=== PATIENT | female | born 1990 | race Caucasian/White ===

== ENCOUNTER 2016-08-07 22:59 | Emergency (ER) | payer OTHER ==
[~2016-08-07 22:59] MED LIST: CLIN300C OR; FLUC10TA OR; NICO21DI4 TD; PERC7.5T8 OR; TRAM50TA2 OR
[2016-08-08] MEDS ORDERED: KETOROLAC 30 MG/ML VIAL (J1885) As Ordered ONE (00:44)
[2016-08-08] MEDS ORDERED: ONDANSETRON 4MG/2ML VIAL (J2405) As Ordered ONE (00:44)
[2016-08-08 01:02] LABS: CONTROL LINE HCG INT CTR LINE PRESENT
[2016-08-08 01:16] LABS: ALBUMIN 3.3 GM/DL (3.2-5.2); ALBUMIN/GLOBULIN RATIO 1.03 (1.00-1.93); ALKALINE PHOSPHATASE 69 U/L (45-117); ALT/SGPT 23 U/L (12-78); AMYLASE 49 U/L (25-115); ANION GAP 6 MEQ/L (8-16); AST/SGOT 18 U/L (15-37); BILIRUBIN,DIRECT < 0.1 MG/DL (0.0-0.2); BILIRUBIN,TOTAL 0.3 MG/DL (0.2-1.0); BLOOD UREA NITROGEN 9 MG/DL (7-18); CALCIUM LEVEL 8.2 MG/DL (8.5-10.1); CARBON DIOXIDE LEVEL 26 MEQ/L (21-32); CHLORIDE LEVEL 108 MEQ/L (98-107); CREATININE FOR GFR 0.67 MG/DL (0.55-1.02); GLOMERULAR FILTRATION RATE > 60.0 (>60); GLUCOSE, FASTING 97 MG/DL (70-105); POTASSIUM SERUM 4.4 MEQ/L (3.5-5.1); SODIUM LEVEL 140 MEQ/L (136-145); TOTAL PROTEIN 6.5 GM/DL (6.4-8.2)
[2016-08-08 01:19] LABS: BASO # 0.1 K/mm3 (0.0-0.2); BASO % 0.9 % (0.0-1.0); EOS # 0.1 K/mm3 (0.0-0.50); EOS % 1.4 % (0.0-3.0); LARGE UNSTAINED CELL # 0.2 K/mm3 (0.0-0.4); LARGE UNSTAINED CELL % 1.7 % (0.0-4.0); LYMPH # 3.1 K/mm3 (1.5-6.5); LYMPH % 34.4 % (24.0-44.0); MEAN CORPUSCULAR HEMOGLOBIN 28.8 pg (27.0-33.0); MEAN CORPUSCULAR HGB CONC 32.6 g/dl (32.0-36.5); MEAN CORPUSCULAR VOLUME 88.5 fl (80.0-96.0); MONO # 0.4 K/mm3 (0.0-0.8); MONO % 4.3 % (0.0-5.0); NEUTROPHILS # 4.9 K/mm3 (1.8-7.7); NEUTROPHILS % 57.3 % (36.0-66.0); PLATELET COUNT, AUTOMATED 173 k/mm3 (150-450); RED CELL DISTRIBUTION WIDTH 12.9 % (11.5-14.5); WHITE BLOOD COUNT 8.5 K/mm3 (4.0-10.0)
[2016-08-08 01:40] LABS: INR 1.01
--- NOTE | 2016-08-08 02:58 | EDDOCDS ---
Physician Documentation [facility] Name: Sherita Miller Age: 25 yrs Sex: Female : 1990 Arrival Date: 08/07/2016 Time: 22:59 Bed 15 Private MD: Rossana Arambula ANP- Disposition: 08/08/16 02:57 Patient has left against medical advice. - Patients states they are going to Home/Self Care. - Condition is Stable. - Discharge Instructions: AMA. Medication Reconciliation, Local Pharmacy Hours form. Follow up: Emergency Department; When: As needed; Reason: Worsening of conditions. Historical: - Allergies: PENICILLINS; Bees; - Home Meds: 1. none - PMHx: Fibromyalgia; Hepatitis C; - PSHx: none; - Social history: Smoking status: Patient uses tobacco products, current every day smoker. No barriers to communication noted, The patient speaks fluent Guinean. - Family history: Not pertinent. - : The pt / caregiver states he / she is not on anticoagulants. Home medication list is obtained from the patient. - Exposure Risk Screening:: None identified. 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 9 in. (175.26 cm) (R); Pain 8/10; 08/08 01:40 BP 132 / 68; Pulse 70; Resp 18; Pulse Ox 99% on R/A; Pain 3/10; tm5 02:40 tm5 08/07 23:01 Body Mass Index 29.24 (89.81 kg, 175.26 cm) gr2 02:40 refused signing out AMA tm5 MDM: 00:35 NS 0.9% 1000 ml IV at bolus once ordered. mm11 00:35 Ondansetron 4 mg IVP once ordered. mm11 00:35 ketorolac 30 mg IVP once ordered. mm11 00:35 IV Saline Lock ordered. mm11 00:35 Undress patient appropriately for examination ordered. mm11 00:36 Amylase Ordered. EDMS 00:36 Basic Metabolic Profile Ordered. EDMS 00:36 CBC with Diff Ordered. EDMS 00:36 HCG,Serum Qualitative Ordered. EDMS 00:36 Lipase Ordered. EDMS 00:36 Liver Profile Ordered. EDMS 00:36 Partial Thromboplastin Time Ordered. EDMS 00:36 Prothrombin Time Profile\E\INR Ordered. EDMS 00:36 NOTHING BY MOUTH+DIET ordered. EDMS 01:05 Financial registration complete. hs2 02:29 Basic Metabolic Profile Reviewed. mm11 02:29 Amylase Reviewed. mm11 02:29 CBC with Diff Reviewed. mm11 02:29 HCG,Serum Qualitative Reviewed. mm11 02:29 Lipase Reviewed. mm11 02:29 Liver Profile Reviewed. mm11 02:29 Partial Thromboplastin Time Reviewed. mm11 02:29 Prothrombin Time Profile\E\INR Reviewed. mm11 Point of Care Testing: Urine : 08/07 23:56 hCG Reading: Negative; Control Reading: Positive; af2 Ranges: Administered Medications: 08/08 00:50 Drug: NS 0.9% 1000 ml [sodium chloride 0.9 % intravenous solution] Route: IV; Rate: tm5 bolus; Site: right antecubital; 00:50 Drug: Ondansetron 4 mg [ondansetron HCl 2 mg/mL intravenous solution (2 mL)] Route: tm5 IVP; Site: right antecubital; 01:15 Follow up: Response: Nausea is resolved; No Adverse Reaction tm5 00:50 Drug: ketorolac 30 mg [ketorolac 30 mg/mL (1 mL) injection solution (1 mL)] Route: IVP; tm5 Site: right antecubital; 01:15 Follow up: Response: No Adverse Reaction; Pain is decreased tm5 Signatures: Dispatcher [employer] EDMS Mesfin Cunningham DO DO mm11 Irma Reyna RN RN af2 Geraldine Hwang, Reg Reg hs2 Diandra Serrano RN RN tm5 MTDD
--- NOTE | 2016-08-08 02:58 | EDDOCDS ---
Nurse's Notes [facility] Name: Sherita Miller Age: 25 yrs Sex: Female : 1990 Arrival Date: 08/07/2016 Time: 22:59 Bed 15 Private MD: Rossana Arambula ANP- Diagnosis: Presentation: 08/07 23:05 Presenting complaint: Patient states: RLQ pain, started a couple days ago higher in af2 abdomen. reports nausea and rectal bleeding. Risk factors: the patient reports no vaginal bleeding. Adult Sepsis Screening: The patient does not have new or worsening altered mentation. Patient's respiratory rate is less than 22. Systolic blood pressure is greater than 100. Patient has a qSOFA score of 0- Negative Sepsis Screen. Suicide/Homicide risk assessment- the patient denies having any suicidal and/or homicidal ideations and does not present with any other emotional, behavioral or mental health complaints. Status: Patient is not a legal services professional or dependent. Transition of care: patient was not received from another setting of care. 23:05 Acuity: BRYANNA Level 3 af2 23:05 Method Of Arrival: Walkin/Carried/Asstd af2 Triage Assessment: 23:07 General: Appears in no apparent distress, Behavior is cooperative. Pain: Location: af2 abdomen Pain currently is 8 out of 10 on a pain scale. HIV screening NA for this visit Offered previously. GI: Reports bloody stools lower abdominal pain, nausea. Derm: Skin is normal. 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 none - PMHx: Fibromyalgia; Hepatitis C; - PSHx: none; - Social history: Smoking status: Patient uses tobacco products, current every day smoker. No barriers to communication noted, The patient speaks fluent Sinhala. - Family history: Not pertinent. - : The pt / caregiver states he / she is not on anticoagulants. Home medication list is obtained from the patient. - Exposure Risk Screening:: None identified. Screenin:08 Screening information is obtained from the patient. Fall risk: No risks identified. af2 Assistance ADL's: requires no assistance with activities of daily living. Abuse/DV Screen: The patient / caregiver reports he/she is: not in a situation that causes fear, pain or injury. Nutritional screening: No deficits noted. Advance Directives: Currently, there is no health care proxy. home support is adequate. Assessment: 08/08 00:32 General: Appears in no apparent distress, Behavior is appropriate for age, cooperative. tm5 Pain: Location: right upper quadrant, left upper quadrant, right lower quadrant and left lower quadrant Pain currently is 10 out of 10 on a pain scale. Quality of pain is described as crampy. Neurological: Level of Consciousness is awake, alert, Oriented to person, place, time. Respiratory: Airway is patent Respiratory effort is even, unlabored, Respiratory pattern is regular, symmetrical. GI: Abdomen is non- distended Bowel sounds present X 4 quads. Abd is soft and non tender X 4 quads. Reports bloody stools. : No deficits noted. Derm: Skin is pink, warm & dry. normal. Musculoskeletal: No deficits noted. 00:51 General: pt now stating to this RN that she thinks the rectal bleeding is actual tm5 bleeding from urination or vaginal bleeding, also states that most of her pain right now is in the RLQ of abdomen, pt texting on her cell phone at this time, appears to be in no distress. 01:40 Reassessment: Patient appears in no apparent distress at this time. Patient states tm5 feeling better. Patient states symptoms have improved. Pain: Location: right lower quadrant Pain currently is 3 out of 10 on a pain scale. Quality of pain is described as burning. 02:05 General: pt asking other staff nurse when someone is coming into see her, this RN went tm5 to pt's bedside and asked pt what was wrong told her that this RN was just into she her about 20 minutes ago & pt had no complaints then, pt was then told that all her labs were completed & everything was coming back good, pt then started rubbing her abdomen & states "Why am I feeling so sick then, can't I get more pain medications then" pt was told that was busy with another pt & that this RN would let him know of her complaints . 02:40 General: pt again calling staff to her room, pt appears upset that she hasn't been tm5 re-evaluated by , asking to have her IV saline lock removed because she wants to leave, Elizabeth Mccullough RN telling pt she will have to sign out AMA per MD, pt okay with this & still wanting to leave ER after AMA was reviewed with her & she was made aware of Risks & Benefits of staying or leaving ER. 02:51 Reassessment: pt asking for her IV to be taken out, asking to leave. pt stating that no mlc one has "told me anything" and "I must not be critical since I have been here for 4 hours". Pt signed AMA form. . Vital Signs: 08/07 23:01 BP 144 / 72; Pulse 81; Resp 18 S; Temp 97.3(O); Pulse Ox 98% on R/A; Weight 89.81 kg gr2 (R); Height 5 ft. 9 in. (175.26 cm) (R); Pain 8/10; 08/08 01:40 BP 132 / 68; Pulse 70; Resp 18; Pulse Ox 99% on R/A; Pain 3/10; tm5 02:40 tm5 08/07 23:01 Body Mass Index 29.24 (89.81 kg, 175.26 cm) gr2 02:40 refused signing out AMA tm5 Vitals: 08/07 23:01 Log In Time: August 07, 2016 at 21:01. gr2 ED Course: 23:01 Patient visited by Rissa Mcclelland. gr2 23:01 Rossana Arambula is Private Physician. gr2 23:01 Patient moved to Waiting gr2 23:03 Patient visited by Rissa Mcclelland. gr2 23:03 Patient moved to Pre RCE gr2 23:06 Triage Initiated af2 23:08 Patient visited by Irma Reyna RN. af2 23:44 Patient moved to Triage 3 af2 23:49 Patient visited by Irma Reyna,RN. af2 23:57 Patient visited by Irma Reyna,RN. af2 08/08 00:02 Patient moved to 15 sls1 00:20 ED physician to see patient. tm5 00:23 Mesfin Cunningham DO is Attending Physician. mm11 00:23 Patient visited by Mesfin Cunningham DO. mm11 00:32 The patient / caregiver is instructed regarding the plan of care and ED course. tm5 00:35 Patient visited by Mesfin Cunningham DO. mm11 00:45 Inserted saline lock: 18 gauge in right antecubital area and blood collected. The tm5 patient tolerated the procedure well. Labs drawn. (by ED staff). Sent per order to lab. 00:46 Amylase Sent. tm5 00:46 Basic Metabolic Profile Sent. tm5 00:46 CBC with Diff Sent. tm5 00:46 HCG,Serum Qualitative Sent. tm5 00:46 Lipase Sent. tm5 00:46 Liver Profile Sent. tm5 00:46 Partial Thromboplastin Time Sent. 5 00:46 Prothrombin Time Profile\\E\\INR Sent. tm5 01:40 Patient visited by Diandra Serrano RN. 5 02:40 Discontinued lock intact, bleeding controlled, pressure dressing applied, No tm5 redness/swelling at site. 02:52 Patient visited by Diandra Serrano RN. tm5 Administered Medications: 00:50 Drug: NS 0.9% 1000 ml [sodium chloride 0.9 % intravenous solution] Route: IV; Rate: tm5 bolus; Site: right antecubital; 00:50 Drug: Ondansetron 4 mg [ondansetron HCl 2 mg/mL intravenous solution (2 mL)] Route: tm5 IVP; Site: right antecubital; 01:15 Follow up: Response: Nausea is resolved; No Adverse Reaction tm5 00:50 Drug: ketorolac 30 mg [ketorolac 30 mg/mL (1 mL) injection solution (1 mL)] Route: IVP; tm5 Site: right antecubital; 01:15 Follow up: Response: No Adverse Reaction; Pain is decreased tm5 Point of Care Testing: Urine : 08/07 23:56 hCG Reading: Negative; Control Reading: Positive; af2 Ranges: Order Results: Lab Order: Amylase; SPEC'M 08/08/16 00:43 Test: AMYLASE; Value: 49; Range: 25-115; Units: U/L; Status: F Lab Order: Basic Metabolic Profile; SPEC'M 08/08/16 00:43 Test: GLUCOSE, FASTING; Value: 97; Range: 70-105; Units: MG/DL; Status: F Test: BLOOD UREA NITROGEN; Value: 9; Range: 7-18; Units: MG/DL; Status: F Test: CREATININE FOR GFR; Value: 0.67; Range: 0.55-1.02; Units: MG/DL; Status: F Test: SODIUM LEVEL; Range: 136-145; Units: MEQ/L; Status: I Test: POTASSIUM SERUM; Range: 3.5-5.1; Units: MEQ/L; Status: I Test: CHLORIDE LEVEL; Range: 98-107; Units: MEQ/L; Status: I Test: CARBON DIOXIDE LEVEL; Range: 21-32; Units: MEQ/L; Status: I Test: ANION GAP; Range: 8-16; Units: MEQ/L; Status: I Test: CALCIUM LEVEL; Range: 8.5-10.1; Units: MG/DL; Status: I Test: GLOMERULAR FILTRATION RATE; Value: > 60.0; Range: >60; Status: F Test: SODIUM LEVEL; Value: 140; Range: 136-145; Units: MEQ/L; Status: F Test: POTASSIUM SERUM; Value: 4.4; Range: 3.5-5.1; Units: MEQ/L; Status: F Test: CHLORIDE LEVEL; Value: 108; Range: 98-107; Abnormal: Above high normal; Units: MEQ/L; Status: F Test: CARBON DIOXIDE LEVEL; Value: 26; Range: 21-32; Units: MEQ/L; Status: F Test: ANION GAP; Value: 6; Range: 8-16; Abnormal: Below low normal; Units: MEQ/L; Status: F Test: CALCIUM LEVEL; Value: 8.2; Range: 8.5-10.1; Abnormal: Below low normal; Units: MG/DL; Status: F Test Note: ; Units are mL/min/1.73 m2 Chronic Kidney Disease Staging per NKF: Stage I & II GFR >=60 Normal to Mildly Decreased Stage III GFR 30-59 Moderately Decreased Stage IV GFR 15-29 Severely Decreased Stage V GFR <15 Very Little GFR Left ESRD GFR <15 on [facility] [employer]FFA[employer] ASSISTANT Lab Order: CBC with Diff; SPEC'M 08/08/16 00:43 Test: WHITE BLOOD COUNT; Value: 8.5; Range: 4.0-10.0; Units: K/mm3; Status: F Test: RED BLOOD COUNT; Value: 4.49; Range: 4.00-5.40; Units: M/mm3; Status: F Test: HEMOGLOBIN; Value: 12.9; Range: 12.0-16.0; Units: g/dl; Status: F Test: HEMATOCRIT; Value: 39.7; Range: 36.0-47.0; Units: %; Status: F Test: MEAN CORPUSCULAR VOLUME; Value: 88.5; Range: 80.0-96.0; Units: fl; Status: F Test: MEAN CORPUSCULAR HEMOGLOBIN; Value: 28.8; Range: 27.0-33.0; Units: pg; Status: F Test: MEAN CORPUSCULAR HGB CONC; Value: 32.6; Range: 32.0-36.5; Units: g/dl; Status: F Test: RED CELL DISTRIBUTION WIDTH; Value: 12.9; Range: 11.5-14.5; Units: %; Status: F Test: PLATELET COUNT, AUTOMATED; Value: 173; Range: 150-450; Units: k/mm3; Status: F Test: NEUTROPHILS %; Value: 57.3; Range: 36.0-66.0; Units: %; Status: F Test: LYMPH %; Value: 34.4; Range: 24.0-44.0; Units: %; Status: F Test: MONO %; Value: 4.3; Range: 0.0-5.0; Units: %; Status: F Test: EOS %; Value: 1.4; Range: 0.0-3.0; Units: %; Status: F Test: BASO %; Value: 0.9; Range: 0.0-1.0; Units: %; Status: F Test: LARGE UNSTAINED CELL %; Value: 1.7; Range: 0.0-4.0; Units: %; Status: F Test: NEUTROPHILS #; Value: 4.9; Range: 1.8-7.7; Units: K/mm3; Status: F Test: LYMPH #; Value: 3.1; Range: 1.5-6.5; Units: K/mm3; Status: F Test: MONO #; Value: 0.4; Range: 0.0-0.8; Units: K/mm3; Status: F Test: EOS #; Value: 0.1; Range: 0.0-0.50; Units: K/mm3; Status: F Test: BASO #; Value: 0.1; Range: 0.0-0.2; Units: K/mm3; Status: F Test: LARGE UNSTAINED CELL #; Value: 0.2; Range: 0.0-0.4; Units: K/mm3; Status: F Lab Order: HCG,Serum Qualitative; 08/08/16:43 Test: HCG, SERUM QUALITATIVE; Value: NEGATIVE; Range: NEGATIVE; Status: F Lab Order: Lipase; 08/08/16:43 Test: LIPASE; Value: 147; Range: 73-393; Units: U/L; Status: F Lab Order: Liver Profile; 08/08/16:43 Test: AST/SGOT; Value: 18; Range: 15-37; Units: U/L; Status: F Test: ALT/SGPT; Value: 23; Range: 12-78; Units: U/L; Status: F Test: ALKALINE PHOSPHATASE; Value: 69; Range: 45-117; Units: U/L; Status: F Test: BILIRUBIN,TOTAL; Value: 0.3; Range: 0.2-1.0; Units: MG/DL; Status: F Test: BILIRUBIN,DIRECT; Value: < 0.1; Range: 0.0-0.2; Units: MG/DL; Status: F Test: TOTAL PROTEIN; Value: 6.5; Range: 6.4-8.2; Units: GM/DL; Status: F Test: ALBUMIN; Value: 3.3; Range: 3.2-5.2; Units: GM/DL; Status: F Test: ALBUMIN/GLOBULIN RATIO; Value: 1.03; Range: 1.00-1.93; Status: F Lab Order: Partial Thromboplastin Time; 08/08/16:43 Test: PARTIAL THROMBOPLASTIN TIME; Value: 31.3; Range: 26.6-37.1; Units: SECONDS; Status: F Lab Order: Prothrombin Time Profile\\E\\INR; 08/08/16:43 Test: PROTHROMBIN TIME; Value: 13.4; Range: 12.3-14.5; Units: SECONDS; Status: F Test: INR; Value: 1.01; Status: F Test Note: ; THERAPUTIC HUMAN INR VALUES INDICATIONS NORMAL RANGES PROPHYLAXIS/TREATMENT OF: VENOUS THROMBOSIS 2.0-3.0 PULMONARY EMBOLISM 2.0-3.0 PREVENTION OF SYSTEMIC EMBOLISM FROM: TISSUE HEART VALVES 2.0-3.0 ACUTE MYOCARDIAL INFARCTION 2.0-3.0 VALVULAR HEART DISEASE 2.0-3.0 ATRIAL FIBRILLATION 2.0-3.0 MECHANICAL VALVES(HIGH RISK) 2.5-3.5 RECURRENT MYOCARDIAL INFARCTION 2.5-3.5 Outcome: 08/08 02:40 Discharge Assessment: Patient awake, alert and oriented x 3. No cognitive and/or tm5 functional deficits noted. Patient verbalized understanding of disposition instructions. patient administered narcotics - no. 02:53 The patient is leaving AMA: AMA form signed, Notification of AMA status is made to the [facility] charge nurse, the ED attending physician. 02:57 Patient left against medical advice. tm5 02:57 Patient left the ED. tm5 Signatures: Mesfin Cunningham, DO mm11 Anita Garcia RN RN sls1 Rissa Mcclelland gr2 Elizabeth Butler RN RN [facility] [place] Irma Reyna RN RN 2 Diandra Serrano RN RN tm5 Corrections: (The following items were deleted from the chart) 00:35 00:32 Awaiting ED physician evaluation. tm5 tm5 02:54 02:52 General: pt again calling staff to her room, pt appears upset that she hasn't tm5 been re-evaluated by , asking to have her IV saline lock removed because she wants to leave, Elizabeth Mccullough RN telling pt she will have to sign out AMA per MD, pt okay with this & still wanting to leave ER after AMA was reviewed with her & she was made aware of Risks & Benefits of staying or leaving ER. tm5 YASMANYD
--- NOTE | 2016-08-08 06:05 | EDDOCDS ---
Nurse's Notes [facility] Name: Sherita Miller Age: 25 yrs Sex: Female : 1990 Arrival Date: 08/07/2016 Time: 22:59 Bed 15 Private MD: Rossana Arambula ANP- Diagnosis: Malingerer [conscious simulation] Presentation: 08/07 23:05 Presenting complaint: Patient states: RLQ pain, started a couple days ago higher in af2 abdomen. reports nausea and rectal bleeding. Risk factors: the patient reports no vaginal bleeding. Adult Sepsis Screening: The patient does not have new or worsening altered mentation. Patient's respiratory rate is less than 22. Systolic blood pressure is greater than 100. Patient has a qSOFA score of 0- Negative Sepsis Screen. Suicide/Homicide risk assessment- the patient denies having any suicidal and/or homicidal ideations and does not present with any other emotional, behavioral or mental health complaints. Status: Patient is not a service engineer or dependent. Transition of care: patient was not received from another setting of care. 23:05 Acuity: BRYANNA Level 3 af2 23:05 Method Of Arrival: Walkin/Carried/Asstd af2 Triage Assessment: 23:07 General: Appears in no apparent distress, Behavior is cooperative. Pain: Location: af2 abdomen Pain currently is 8 out of 10 on a pain scale. HIV screening NA for this visit Offered previously. GI: Reports bloody stools lower abdominal pain, nausea. Derm: Skin is normal. 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 none - PMHx: Fibromyalgia; Hepatitis C; - PSHx: none; - Social history: Smoking status: Patient uses tobacco products, current every day smoker. No barriers to communication noted, The patient speaks fluent Syriac. - Family history: Not pertinent. - : The pt / caregiver states he / she is not on anticoagulants. Home medication list is obtained from the patient. - Exposure Risk Screening:: None identified. Screenin:08 Screening information is obtained from the patient. Fall risk: No risks identified. af2 Assistance ADL's: requires no assistance with activities of daily living. Abuse/DV Screen: The patient / caregiver reports he/she is: not in a situation that causes fear, pain or injury. Nutritional screening: No deficits noted. Advance Directives: Currently, there is no health care proxy. home support is adequate. Assessment: 08/08 00:32 General: Appears in no apparent distress, Behavior is appropriate for age, cooperative. tm5 Pain: Location: right upper quadrant, left upper quadrant, right lower quadrant and left lower quadrant Pain currently is 10 out of 10 on a pain scale. Quality of pain is described as crampy. Neurological: Level of Consciousness is awake, alert, Oriented to person, place, time. Respiratory: Airway is patent Respiratory effort is even, unlabored, Respiratory pattern is regular, symmetrical. GI: Abdomen is non- distended Bowel sounds present X 4 quads. Abd is soft and non tender X 4 quads. Reports bloody stools. : No deficits noted. Derm: Skin is pink, warm & dry. normal. Musculoskeletal: No deficits noted. 00:51 General: pt now stating to this RN that she thinks the rectal bleeding is actual tm5 bleeding from urination or vaginal bleeding, also states that most of her pain right now is in the RLQ of abdomen, pt texting on her cell phone at this time, appears to be in no distress. 01:40 Reassessment: Patient appears in no apparent distress at this time. Patient states tm5 feeling better. Patient states symptoms have improved. Pain: Location: right lower quadrant Pain currently is 3 out of 10 on a pain scale. Quality of pain is described as burning. 02:05 General: pt asking other staff nurse when someone is coming into see her, this RN went tm5 to pt's bedside and asked pt what was wrong told her that this RN was just into she her about 20 minutes ago & pt had no complaints then, pt was then told that all her labs were completed & everything was coming back good, pt then started rubbing her abdomen & states "Why am I feeling so sick then, can't I get more pain medications then" pt was told that MD was busy with another pt & that this RN would let him know of her complaints . 02:40 General: pt again calling staff to her room, pt appears upset that she hasn't been tm5 re-evaluated by , asking to have her IV saline lock removed because she wants to leave, Elizabeth Mccullough RN telling pt she will have to sign out AMA per , pt okay with this & still wanting to leave ER after AMA was reviewed with her & she was made aware of Risks & Benefits of staying or leaving ER. 02:51 Reassessment: pt asking for her IV to be taken out, asking to leave. pt stating that no mlc one has "told me anything" and "I must not be critical since I have been here for 4 hours". Pt signed AMA form. . Vital Signs: 08/07 23:01 BP 144 / 72; Pulse 81; Resp 18 S; Temp 97.3(O); Pulse Ox 98% on R/A; Weight 89.81 kg gr2 (R); Height 5 ft. 9 in. (175.26 cm) (R); Pain 8/10; 08/08 01:40 BP 132 / 68; Pulse 70; Resp 18; Pulse Ox 99% on R/A; Pain 3/10; tm5 02:40 tm5 08/07 23:01 Body Mass Index 29.24 (89.81 kg, 175.26 cm) gr2 02:40 refused signing out AMA tm5 Vitals: 08/07 23:01 Log In Time: August 07, 2016 at 21:01. gr2 ED Course: 23:01 Patient visited by Rissa Mcclelland. gr2 23:01 Rossana Arambula is Private Physician. gr2 23:01 Patient moved to Waiting gr2 23:03 Patient visited by Rissa Mcclelland. gr2 23:03 Patient moved to Pre RCE gr2 23:06 Triage Initiated af2 23:08 Patient visited by Irma Reyna,RN. af2 23:44 Patient moved to Triage 3 af2 23:49 Patient visited by Irma Reyna,RN. af2 23:57 Patient visited by Irma Reyna,RN. af2 08/08 00:02 Patient moved to 15 sls1 00:20 ED physician to see patient. tm5 00:23 Mesfin Cunningahm DO is Attending Physician. mm11 00:23 Patient visited by Mesfin Cunningham DO. mm11 00:32 The patient / caregiver is instructed regarding the plan of care and ED course. tm5 00:35 Patient visited by Mesfin Cunningham DO. mm11 00:45 Inserted saline lock: 18 gauge in right antecubital area and blood collected. The tm5 patient tolerated the procedure well. Labs drawn. (by ED staff). Sent per order to lab. 00:46 Amylase Sent. tm5 00:46 Basic Metabolic Profile Sent. tm5 00:46 CBC with Diff Sent. tm5 00:46 HCG,Serum Qualitative Sent. tm5 00:46 Lipase Sent. tm5 00:46 Liver Profile Sent. tm5 00:46 Partial Thromboplastin Time Sent. tm5 00:46 Prothrombin Time Profile\\E\\INR Sent. tm5 01:40 Patient visited by Diandra Serrano RN. tm5 02:40 Discontinued lock intact, bleeding controlled, pressure dressing applied, No tm5 redness/swelling at site. 02:52 Patient visited by Diandra Serrano RN. tm5 03:51 [facility] Payment Agreement was scanned into [employer] and attached to record. hs2 Administered Medications: 00:50 Drug: NS 0.9% 1000 ml [sodium chloride 0.9 % intravenous solution] Route: IV; Rate: tm5 bolus; Site: right antecubital; 00:50 Drug: Ondansetron 4 mg [ondansetron HCl 2 mg/mL intravenous solution (2 mL)] Route: tm5 IVP; Site: right antecubital; 01:15 Follow up: Response: Nausea is resolved; No Adverse Reaction tm5 00:50 Drug: ketorolac 30 mg [ketorolac 30 mg/mL (1 mL) injection solution (1 mL)] Route: IVP; tm5 Site: right antecubital; 01:15 Follow up: Response: No Adverse Reaction; Pain is decreased tm5 Point of Care Testing: Urine : 08/07 23:56 hCG Reading: Negative; Control Reading: Positive; af2 Ranges: Order Results: Lab Order: Amylase; SPEC'M 08/08/16 00:43 Test: AMYLASE; Value: 49; Range: 25-115; Units: U/L; Status: F Lab Order: Basic Metabolic Profile; SPEC'M 08/08/16 00:43 Test: GLUCOSE, FASTING; Value: 97; Range: 70-105; Units: MG/DL; Status: F Test: BLOOD UREA NITROGEN; Value: 9; Range: 7-18; Units: MG/DL; Status: F Test: CREATININE FOR GFR; Value: 0.67; Range: 0.55-1.02; Units: MG/DL; Status: F Test: SODIUM LEVEL; Range: 136-145; Units: MEQ/L; Status: I Test: POTASSIUM SERUM; Range: 3.5-5.1; Units: MEQ/L; Status: I Test: CHLORIDE LEVEL; Range: 98-107; Units: MEQ/L; Status: I Test: CARBON DIOXIDE LEVEL; Range: 21-32; Units: MEQ/L; Status: I Test: ANION GAP; Range: 8-16; Units: MEQ/L; Status: I Test: CALCIUM LEVEL; Range: 8.5-10.1; Units: MG/DL; Status: I Test: GLOMERULAR FILTRATION RATE; Value: > 60.0; Range: >60; Status: F Test: SODIUM LEVEL; Value: 140; Range: 136-145; Units: MEQ/L; Status: F Test: POTASSIUM SERUM; Value: 4.4; Range: 3.5-5.1; Units: MEQ/L; Status: F Test: CHLORIDE LEVEL; Value: 108; Range: 98-107; Abnormal: Above high normal; Units: MEQ/L; Status: F Test: CARBON DIOXIDE LEVEL; Value: 26; Range: 21-32; Units: MEQ/L; Status: F Test: ANION GAP; Value: 6; Range: 8-16; Abnormal: Below low normal; Units: MEQ/L; Status: F Test: CALCIUM LEVEL; Value: 8.2; Range: 8.5-10.1; Abnormal: Below low normal; Units: MG/DL; Status: F Test Note: ; Units are mL/min/1.73 m2 Chronic Kidney Disease Staging per NKF: Stage I & II GFR >=60 Normal to Mildly Decreased Stage III GFR 30-59 Moderately Decreased Stage IV GFR 15-29 Severely Decreased Stage V GFR <15 Very Little GFR Left ESRD GFR <15 on MANAGER R D Lab Order: CBC with Diff; SPEC'M 08/08/16 00:43 Test: WHITE BLOOD COUNT; Value: 8.5; Range: 4.0-10.0; Units: K/mm3; Status: F Test: RED BLOOD COUNT; Value: 4.49; Range: 4.00-5.40; Units: M/mm3; Status: F Test: HEMOGLOBIN; Value: 12.9; Range: 12.0-16.0; Units: g/dl; Status: F Test: HEMATOCRIT; Value: 39.7; Range: 36.0-47.0; Units: %; Status: F Test: MEAN CORPUSCULAR VOLUME; Value: 88.5; Range: 80.0-96.0; Units: fl; Status: F Test: MEAN CORPUSCULAR HEMOGLOBIN; Value: 28.8; Range: 27.0-33.0; Units: pg; Status: F Test: MEAN CORPUSCULAR HGB CONC; Value: 32.6; Range: 32.0-36.5; Units: g/dl; Status: F Test: RED CELL DISTRIBUTION WIDTH; Value: 12.9; Range: 11.5-14.5; Units: %; Status: F Test: PLATELET COUNT, AUTOMATED; Value: 173; Range: 150-450; Units: k/mm3; Status: F Test: NEUTROPHILS %; Value: 57.3; Range: 36.0-66.0; Units: %; Status: F Test: LYMPH %; Value: 34.4; Range: 24.0-44.0; Units: %; Status: F Test: MONO %; Value: 4.3; Range: 0.0-5.0; Units: %; Status: F Test: EOS %; Value: 1.4; Range: 0.0-3.0; Units: %; Status: F Test: BASO %; Value: 0.9; Range: 0.0-1.0; Units: %; Status: F Test: LARGE UNSTAINED CELL %; Value: 1.7; Range: 0.0-4.0; Units: %; Status: F Test: NEUTROPHILS #; Value: 4.9; Range: 1.8-7.7; Units: K/mm3; Status: F Test: LYMPH #; Value: 3.1; Range: 1.5-6.5; Units: K/mm3; Status: F Test: MONO #; Value: 0.4; Range: 0.0-0.8; Units: K/mm3; Status: F Test: EOS #; Value: 0.1; Range: 0.0-0.50; Units: K/mm3; Status: F Test: BASO #; Value: 0.1; Range: 0.0-0.2; Units: K/mm3; Status: F Test: LARGE UNSTAINED CELL #; Value: 0.2; Range: 0.0-0.4; Units: K/mm3; Status: F Lab Order: HCG,Serum Qualitative; 08/08/16 00:43 Test: HCG, SERUM QUALITATIVE; Value: NEGATIVE; Range: NEGATIVE; Status: F Lab Order: Lipase; 08/08/16 00:43 Test: LIPASE; Value: 147; Range: 73-393; Units: U/L; Status: F Lab Order: Liver Profile; 08/08/16 00:43 Test: AST/SGOT; Value: 18; Range: 15-37; Units: U/L; Status: F Test: ALT/SGPT; Value: 23; Range: 12-78; Units: U/L; Status: F Test: ALKALINE PHOSPHATASE; Value: 69; Range: 45-117; Units: U/L; Status: F Test: BILIRUBIN,TOTAL; Value: 0.3; Range: 0.2-1.0; Units: MG/DL; Status: F Test: BILIRUBIN,DIRECT; Value: < 0.1; Range: 0.0-0.2; Units: MG/DL; Status: F Test: TOTAL PROTEIN; Value: 6.5; Range: 6.4-8.2; Units: GM/DL; Status: F Test: ALBUMIN; Value: 3.3; Range: 3.2-5.2; Units: GM/DL; Status: F Test: ALBUMIN/GLOBULIN RATIO; Value: 1.03; Range: 1.00-1.93; Status: F Lab Order: Partial Thromboplastin Time; 08/08/16 00:43 Test: PARTIAL THROMBOPLASTIN TIME; Value: 31.3; Range: 26.6-37.1; Units: SECONDS; Status: F Lab Order: Prothrombin Time Profile\\E\\INR; 08/08/16 00:43 Test: PROTHROMBIN TIME; Value: 13.4; Range: 12.3-14.5; Units: SECONDS; Status: F Test: INR; Value: 1.01; Status: F Test Note: ; THERAPUTIC HUMAN INR VALUES INDICATIONS NORMAL RANGES PROPHYLAXIS/TREATMENT OF: VENOUS THROMBOSIS 2.0-3.0 PULMONARY EMBOLISM 2.0-3.0 PREVENTION OF SYSTEMIC EMBOLISM FROM: TISSUE HEART VALVES 2.0-3.0 ACUTE MYOCARDIAL INFARCTION 2.0-3.0 VALVULAR HEART DISEASE 2.0-3.0 ATRIAL FIBRILLATION 2.0-3.0 MECHANICAL VALVES(HIGH RISK) 2.5-3.5 RECURRENT MYOCARDIAL INFARCTION 2.5-3.5 Outcome: 08/08 02:40 Discharge Assessment: Patient awake, alert and oriented x 3. No cognitive and/or tm5 functional deficits noted. Patient verbalized understanding of disposition instructions. patient administered narcotics - no. 02:53 The patient is leaving AMA: AMA form signed, Notification of AMA status is made to the [facility] charge nurse, the ED attending physician. 02:57 Patient left against medical advice. tm5 02:57 Patient left the ED. tm5 06:04 Patient left the ED. mm11 Signatures: Mesfin Cunningham, DO mm11 Anita Garcia RN RN sls1 Rissa Mcclelland gr2 Elizabeth Butler RN RN [facility] Irma Reyna RN RN af2 Geraldine Hwang, Reg Reg hs2 Diandra Serrano,RN RN tm5 Corrections: (The following items were deleted from the chart) 00:35 00:32 Awaiting ED physician evaluation. tm5 tm5 02:54 02:52 General: pt again calling staff to her room, pt appears upset that she hasn't tm5 been re-evaluated by , asking to have her IV saline lock removed because she wants to leave, Elizabeth Mccullough RN telling pt she will have to sign out AMA per , pt okay with this & still wanting to leave ER after AMA was reviewed with her & she was made aware of Risks & Benefits of staying or leaving ER. tm5 MTDD
--- NOTE | 2016-08-08 06:05 | EDDOCDS ---
Physician Documentation [facility] Name: Sherita Miller Age: 25 yrs Sex: Female : 1990 Arrival Date: 08/07/2016 Time: 22:59 Bed 15 Private MD: Rossana Arambula ANP- Disposition: 08/08/16 02:57 Patient has left against medical advice. 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 - Patients states they are going to Home/Self Care. - Condition is Stable. - Discharge Instructions: AMA. Medication Reconciliation, Local Pharmacy Hours form. Follow up: Emergency Department; When: As needed; Reason: Worsening of conditions. - Problem is an ongoing problem. - Symptoms are unchanged. Historical: - Allergies: PENICILLINS; Bees; - Home Meds: 1. none - PMHx: Fibromyalgia; Hepatitis C; - PSHx: none; - Social history: Smoking status: Patient uses tobacco products, current every day smoker. No barriers to communication noted, The patient speaks fluent Palauan. - Family history: Not pertinent. - : The pt / caregiver states he / she is not on anticoagulants. Home medication list is obtained from the patient. - Exposure Risk Screening:: None identified. 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 9 in. (175.26 cm) (R); Pain 8/10; 08/08 01:40 BP 132 / 68; Pulse 70; Resp 18; Pulse Ox 99% on R/A; Pain 3/10; tm5 02:40 tm5 08/07 23:01 Body Mass Index 29.24 (89.81 kg, 175.26 cm) gr2 02:40 refused signing out AMA tm5 MDM: 00:35 NS 0.9% 1000 ml IV at bolus once ordered. mm11 00:35 Ondansetron 4 mg IVP once ordered. mm11 00:35 ketorolac 30 mg IVP once ordered. mm11 00:35 IV Saline Lock ordered. mm11 00:35 Undress patient appropriately for examination ordered. mm11 00:36 Amylase Ordered. EDMS 00:36 Basic Metabolic Profile Ordered. EDMS 00:36 CBC with Diff Ordered. EDMS 00:36 HCG,Serum Qualitative Ordered. EDMS 00:36 Lipase Ordered. EDMS 00:36 Liver Profile Ordered. EDMS 00:36 Partial Thromboplastin Time Ordered. EDMS 00:36 Prothrombin Time Profile\E\INR Ordered. EDMS 00:36 NOTHING BY MOUTH+DIET ordered. EDMS 01:05 Financial registration complete. hs2 02:29 Basic Metabolic Profile Reviewed. mm11 02:29 Amylase Reviewed. mm11 02:29 CBC with Diff Reviewed. mm11 02:29 HCG,Serum Qualitative Reviewed. mm11 02:29 Lipase Reviewed. mm11 02:29 Liver Profile Reviewed. mm11 02:29 Partial Thromboplastin Time Reviewed. mm11 02:29 Prothrombin Time Profile\E\INR Reviewed. mm11 03:51 [facility] Payment Agreement was scanned into [employer] and attached to record. hs2 Point of Care Testing: Urine : 08/07 23:56 hCG Reading: Negative; Control Reading: Positive; af2 Ranges: Administered Medications: 08/08 00:50 Drug: NS 0.9% 1000 ml [sodium chloride 0.9 % intravenous solution] Route: IV; Rate: tm5 bolus; Site: right antecubital; 00:50 Drug: Ondansetron 4 mg [ondansetron HCl 2 mg/mL intravenous solution (2 mL)] Route: tm5 IVP; Site: right antecubital; 01:15 Follow up: Response: Nausea is resolved; No Adverse Reaction tm5 00:50 Drug: ketorolac 30 mg [ketorolac 30 mg/mL (1 mL) injection solution (1 mL)] Route: IVP; tm5 Site: right antecubital; 01:15 Follow up: Response: No Adverse Reaction; Pain is decreased tm5 Signatures: Dispatcher [employer] EDMS Mesfin Cunningham DO DO mm11 Irma Reyna RN RN af2 Geraldine Hwang, Reg Reg hs2 Diandra Serrano RN RN tm5 The chart was reviewed and I authenticate all verbal orders and agree with the evaluation and treatment provided.Attachments: 03:51 [facility] Payment Agreement hs2 MTDD
--- NOTE | 2016-08-10 07:05 | EDDOCDS ---
Physician Documentation [facility] Name: Sherita Miller Age: 25 yrs Sex: Female : 1990 Arrival Date: 08/07/2016 Time: 22:59 Bed 15 Private MD: Rossana Arambula ANP- Disposition: 08/08/16 02:57 Patient has left against medical advice. 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 - Patients states they are going to Home/Self Care. - Condition is Stable. - Discharge Instructions: AMA. Medication Reconciliation, Local Pharmacy Hours form. Follow up: Emergency Department; When: As needed; Reason: Worsening of conditions. - Problem is an ongoing problem. - Symptoms are unchanged. Historical: - Allergies: PENICILLINS; Bees; - Home Meds: 1. none - PMHx: Fibromyalgia; Hepatitis C; - PSHx: none; - Social history: Smoking status: Patient uses tobacco products, current every day smoker. No barriers to communication noted, The patient speaks fluent Sammarinese. - Family history: Not pertinent. - : The pt / caregiver states he / she is not on anticoagulants. Home medication list is obtained from the patient. - Exposure Risk Screening:: None identified. 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 9 in. (175.26 cm) (R); Pain 8/10; 08/08 01:40 BP 132 / 68; Pulse 70; Resp 18; Pulse Ox 99% on R/A; Pain 3/10; tm5 02:40 tm5 08/07 23:01 Body Mass Index 29.24 (89.81 kg, 175.26 cm) gr2 02:40 refused signing out AMA tm5 MDM: 00:35 NS 0.9% 1000 ml IV at bolus once ordered. mm11 00:35 Ondansetron 4 mg IVP once ordered. mm11 00:35 ketorolac 30 mg IVP once ordered. mm11 00:35 IV Saline Lock ordered. mm11 00:35 Undress patient appropriately for examination ordered. mm11 00:36 Amylase Ordered. EDMS 00:36 Basic Metabolic Profile Ordered. EDMS 00:36 CBC with Diff Ordered. EDMS 00:36 HCG,Serum Qualitative Ordered. EDMS 00:36 Lipase Ordered. EDMS 00:36 Liver Profile Ordered. EDMS 00:36 Partial Thromboplastin Time Ordered. EDMS 00:36 Prothrombin Time Profile\E\INR Ordered. EDMS 00:36 NOTHING BY MOUTH+DIET ordered. EDMS 01:05 Financial registration complete. hs2 02:29 Basic Metabolic Profile Reviewed. mm11 02:29 Amylase Reviewed. mm11 02:29 CBC with Diff Reviewed. mm11 02:29 HCG,Serum Qualitative Reviewed. mm11 02:29 Lipase Reviewed. mm11 02:29 Liver Profile Reviewed. mm11 02:29 Partial Thromboplastin Time Reviewed. mm11 02:29 Prothrombin Time Profile\E\INR Reviewed. mm11 03:51 [facility] Payment Agreement was scanned into [employer] and attached to record. hs2 10:08 Refusal of Services was scanned into [employer] and attached to record. gb 10:08 T-Sheet-- Draft Copy was scanned into [employer] and attached to record. Point of Care Testing: Urine : 08/07 23:56 hCG Reading: Negative; Control Reading: Positive; af2 Ranges: Administered Medications: 08/08 00:50 Drug: NS 0.9% 1000 ml [sodium chloride 0.9 % intravenous solution] Route: IV; Rate: tm5 bolus; Site: right antecubital; 00:50 Drug: Ondansetron 4 mg [ondansetron HCl 2 mg/mL intravenous solution (2 mL)] Route: tm5 IVP; Site: right antecubital; 01:15 Follow up: Response: Nausea is resolved; No Adverse Reaction tm5 00:50 Drug: ketorolac 30 mg [ketorolac 30 mg/mL (1 mL) injection solution (1 mL)] Route: IVP; tm5 Site: right antecubital; 01:15 Follow up: Response: No Adverse Reaction; Pain is decreased tm5 Signatures: Dispatcher [employer] EDMS Rocio Zepeda, Reg Reg gb Mesfin Cunningham, DO mm11 Irma ReynaRN RN af2 Geraldine Hwang, Reg Reg hs2 Matice,Diandra,RN RN tm5 The chart was reviewed and I authenticate all verbal orders and agree with the evaluation and treatment provided.Attachments: 03:51 [facility] Payment Agreement hs2 10:08 T-Sheet-- Draft Copy gb Chart Complete MTDD
--- NOTE | 2016-08-10 07:05 | EDDOCDS ---
Physician Documentation [facility] Name: Sherita Miller Age: 25 yrs Sex: Female : 1990 Arrival Date: 08/07/2016 Time: 22:59 Bed 15 Private MD: Rossana Arambula ANP- Disposition: 08/08/16 02:57 Patient has left against medical advice. 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 - Patients states they are going to Home/Self Care. - Condition is Stable. - Discharge Instructions: AMA. Medication Reconciliation, Local Pharmacy Hours form. Follow up: Emergency Department; When: As needed; Reason: Worsening of conditions. - Problem is an ongoing problem. - Symptoms are unchanged. Historical: - Allergies: PENICILLINS; Bees; - Home Meds: 1. none - PMHx: Fibromyalgia; Hepatitis C; - PSHx: none; - Social history: Smoking status: Patient uses tobacco products, current every day smoker. No barriers to communication noted, The patient speaks fluent Uruguayan. - Family history: Not pertinent. - : The pt / caregiver states he / she is not on anticoagulants. Home medication list is obtained from the patient. - Exposure Risk Screening:: None identified. 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 9 in. (175.26 cm) (R); Pain 8/10; 08/08 01:40 BP 132 / 68; Pulse 70; Resp 18; Pulse Ox 99% on R/A; Pain 3/10; tm5 02:40 tm5 08/07 23:01 Body Mass Index 29.24 (89.81 kg, 175.26 cm) gr2 02:40 refused signing out AMA tm5 MDM: 00:35 NS 0.9% 1000 ml IV at bolus once ordered. mm11 00:35 Ondansetron 4 mg IVP once ordered. mm11 00:35 ketorolac 30 mg IVP once ordered. mm11 00:35 IV Saline Lock ordered. mm11 00:35 Undress patient appropriately for examination ordered. mm11 00:36 Amylase Ordered. EDMS 00:36 Basic Metabolic Profile Ordered. EDMS 00:36 CBC with Diff Ordered. EDMS 00:36 HCG,Serum Qualitative Ordered. EDMS 00:36 Lipase Ordered. EDMS 00:36 Liver Profile Ordered. EDMS 00:36 Partial Thromboplastin Time Ordered. EDMS 00:36 Prothrombin Time Profile\E\INR Ordered. EDMS 00:36 NOTHING BY MOUTH+DIET ordered. EDMS 01:05 Financial registration complete. hs2 02:29 Basic Metabolic Profile Reviewed. mm11 02:29 Amylase Reviewed. mm11 02:29 CBC with Diff Reviewed. mm11 02:29 HCG,Serum Qualitative Reviewed. mm11 02:29 Lipase Reviewed. mm11 02:29 Liver Profile Reviewed. mm11 02:29 Partial Thromboplastin Time Reviewed. mm11 02:29 Prothrombin Time Profile\E\INR Reviewed. mm11 03:51 [facility] Payment Agreement was scanned into [employer] and attached to record. hs2 10:08 Refusal of Services was scanned into [employer] and attached to record. gb 10:08 T-Sheet-- Draft Copy was scanned into [employer] and attached to record. Point of Care Testing: Urine : 08/07 23:56 hCG Reading: Negative; Control Reading: Positive; af2 Ranges: Administered Medications: 08/08 00:50 Drug: NS 0.9% 1000 ml [sodium chloride 0.9 % intravenous solution] Route: IV; Rate: tm5 bolus; Site: right antecubital; 00:50 Drug: Ondansetron 4 mg [ondansetron HCl 2 mg/mL intravenous solution (2 mL)] Route: tm5 IVP; Site: right antecubital; 01:15 Follow up: Response: Nausea is resolved; No Adverse Reaction tm5 00:50 Drug: ketorolac 30 mg [ketorolac 30 mg/mL (1 mL) injection solution (1 mL)] Route: IVP; tm5 Site: right antecubital; 01:15 Follow up: Response: No Adverse Reaction; Pain is decreased tm5 Signatures: Dispatcher [employer] EDMS Rocio Zepeda, Reg Reg gb Mesfin Cunningham, DO mm11 Irma ReyanRN RN af2 Geraldine Hwang, Reg Reg hs2 Matice,Diandra,RN RN tm5 The chart was reviewed and I authenticate all verbal orders and agree with the evaluation and treatment provided.Attachments: 03:51 [facility] Payment Agreement hs2 10:08 T-Sheet-- Draft Copy gb Chart Complete MTDD
--- NOTE | 2016-08-10 07:05 | EDDOCDS ---
Nurse's Notes [facility] Name: Sherita Miller Age: 25 yrs Sex: Female : 1990 Arrival Date: 08/07/2016 Time: 22:59 Bed 15 Private MD: Rossana Arambula ANP- Diagnosis: Malingerer [conscious simulation] Presentation: 08/07 23:05 Presenting complaint: Patient states: RLQ pain, started a couple days ago higher in af2 abdomen. reports nausea and rectal bleeding. Risk factors: the patient reports no vaginal bleeding. Adult Sepsis Screening: The patient does not have new or worsening altered mentation. Patient's respiratory rate is less than 22. Systolic blood pressure is greater than 100. Patient has a qSOFA score of 0- Negative Sepsis Screen. Suicide/Homicide risk assessment- the patient denies having any suicidal and/or homicidal ideations and does not present with any other emotional, behavioral or mental health complaints. Status: Patient is not a director agricultural services or dependent. Transition of care: patient was not received from another setting of care. 23:05 Acuity: BRYANNA Level 3 af2 23:05 Method Of Arrival: Walkin/Carried/Asstd af2 Triage Assessment: 23:07 General: Appears in no apparent distress, Behavior is cooperative. Pain: Location: af2 abdomen Pain currently is 8 out of 10 on a pain scale. HIV screening NA for this visit Offered previously. GI: Reports bloody stools lower abdominal pain, nausea. Derm: Skin is normal. 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 none - PMHx: Fibromyalgia; Hepatitis C; - PSHx: none; - Social history: Smoking status: Patient uses tobacco products, current every day smoker. No barriers to communication noted, The patient speaks fluent Albanian. - Family history: Not pertinent. - : The pt / caregiver states he / she is not on anticoagulants. Home medication list is obtained from the patient. - Exposure Risk Screening:: None identified. Screenin:08 Screening information is obtained from the patient. Fall risk: No risks identified. af2 Assistance ADL's: requires no assistance with activities of daily living. Abuse/DV Screen: The patient / caregiver reports he/she is: not in a situation that causes fear, pain or injury. Nutritional screening: No deficits noted. Advance Directives: Currently, there is no health care proxy. home support is adequate. Assessment: 08/08 00:32 General: Appears in no apparent distress, Behavior is appropriate for age, cooperative. tm5 Pain: Location: right upper quadrant, left upper quadrant, right lower quadrant and left lower quadrant Pain currently is 10 out of 10 on a pain scale. Quality of pain is described as crampy. Neurological: Level of Consciousness is awake, alert, Oriented to person, place, time. Respiratory: Airway is patent Respiratory effort is even, unlabored, Respiratory pattern is regular, symmetrical. GI: Abdomen is non- distended Bowel sounds present X 4 quads. Abd is soft and non tender X 4 quads. Reports bloody stools. : No deficits noted. Derm: Skin is pink, warm & dry. normal. Musculoskeletal: No deficits noted. 00:51 General: pt now stating to this RN that she thinks the rectal bleeding is actual tm5 bleeding from urination or vaginal bleeding, also states that most of her pain right now is in the RLQ of abdomen, pt texting on her cell phone at this time, appears to be in no distress. 01:40 Reassessment: Patient appears in no apparent distress at this time. Patient states tm5 feeling better. Patient states symptoms have improved. Pain: Location: right lower quadrant Pain currently is 3 out of 10 on a pain scale. Quality of pain is described as burning. 02:05 General: pt asking other staff nurse when someone is coming into see her, this RN went tm5 to pt's bedside and asked pt what was wrong told her that this RN was just into she her about 20 minutes ago & pt had no complaints then, pt was then told that all her labs were completed & everything was coming back good, pt then started rubbing her abdomen & states "Why am I feeling so sick then, can't I get more pain medications then" pt was told that MD was busy with another pt & that this RN would let him know of her complaints . 02:40 General: pt again calling staff to her room, pt appears upset that she hasn't been tm5 re-evaluated by , asking to have her IV saline lock removed because she wants to leave, Elizabeth Mccullough RN telling pt she will have to sign out AMA per , pt okay with this & still wanting to leave ER after AMA was reviewed with her & she was made aware of Risks & Benefits of staying or leaving ER. 02:51 Reassessment: pt asking for her IV to be taken out, asking to leave. pt stating that no mlc one has "told me anything" and "I must not be critical since I have been here for 4 hours". Pt signed AMA form. . Vital Signs: 08/07 23:01 BP 144 / 72; Pulse 81; Resp 18 S; Temp 97.3(O); Pulse Ox 98% on R/A; Weight 89.81 kg gr2 (R); Height 5 ft. 9 in. (175.26 cm) (R); Pain 8/10; 08/08 01:40 BP 132 / 68; Pulse 70; Resp 18; Pulse Ox 99% on R/A; Pain 3/10; tm5 02:40 tm5 08/07 23:01 Body Mass Index 29.24 (89.81 kg, 175.26 cm) gr2 02:40 refused signing out AMA tm5 Vitals: 08/07 23:01 Log In Time: August 07, 2016 at 21:01. gr2 ED Course: 23:01 Patient visited by Rissa Mcclelland. gr2 23:01 Rossana Arambula is Private Physician. gr2 23:01 Patient moved to Waiting gr2 23:03 Patient visited by Rissa Mcclelland. gr2 23:03 Patient moved to Pre RCE gr2 23:06 Triage Initiated af2 23:08 Patient visited by Irma Reyna,RN. af2 23:44 Patient moved to Triage 3 af2 23:49 Patient visited by Irma Reyna,RN. af2 23:57 Patient visited by Irma Reyna,RN. af2 08/08 00:02 Patient moved to 15 sls1 00:20 ED physician to see patient. tm5 00:23 Mesfin Cunningham DO is Attending Physician. mm11 00:23 Patient visited by Mesfin Cunningham DO. mm11 00:32 The patient / caregiver is instructed regarding the plan of care and ED course. tm5 00:35 Patient visited by Mesfin Cunningham DO. mm11 00:45 Inserted saline lock: 18 gauge in right antecubital area and blood collected. The tm5 patient tolerated the procedure well. Labs drawn. (by ED staff). Sent per order to lab. 00:46 Amylase Sent. tm5 00:46 Basic Metabolic Profile Sent. tm5 00:46 CBC with Diff Sent. tm5 00:46 HCG,Serum Qualitative Sent. tm5 00:46 Lipase Sent. tm5 00:46 Liver Profile Sent. tm5 00:46 Partial Thromboplastin Time Sent. tm5 00:46 Prothrombin Time Profile\\E\\INR Sent. tm5 01:40 Patient visited by Diandra Serrano,FIGUEROA. tm5 02:40 Discontinued lock intact, bleeding controlled, pressure dressing applied, No tm5 redness/swelling at site. 02:52 Patient visited by Diandra Serrano RN. tm5 03:51 [facility] Payment Agreement was scanned into [employer] and attached to record. hs2 10:08 Refusal of Services was scanned into [employer] and attached to record. gb 10:08 T-Sheet-- Draft Copy was scanned into [employer] and attached to record. gb Administered Medications: 00:50 Drug: NS 0.9% 1000 ml [sodium chloride 0.9 % intravenous solution] Route: IV; Rate: tm5 bolus; Site: right antecubital; 00:50 Drug: Ondansetron 4 mg [ondansetron HCl 2 mg/mL intravenous solution (2 mL)] Route: tm5 IVP; Site: right antecubital; 01:15 Follow up: Response: Nausea is resolved; No Adverse Reaction tm5 00:50 Drug: ketorolac 30 mg [ketorolac 30 mg/mL (1 mL) injection solution (1 mL)] Route: IVP; tm5 Site: right antecubital; 01:15 Follow up: Response: No Adverse Reaction; Pain is decreased tm5 Attachments: 10:08 Refusal of Services gb Point of Care Testing: Urine : 08/07 23:56 hCG Reading: Negative; Control Reading: Positive; af2 Ranges: Order Results: Lab Order: Amylase; SPEC'M 08/08/16 00:43 Test: AMYLASE; Value: 49; Range: 25-115; Units: U/L; Status: F Lab Order: Basic Metabolic Profile; SPEC'M 08/08/16 00:43 Test: GLUCOSE, FASTING; Value: 97; Range: 70-105; Units: MG/DL; Status: F Test: BLOOD UREA NITROGEN; Value: 9; Range: 7-18; Units: MG/DL; Status: F Test: CREATININE FOR GFR; Value: 0.67; Range: 0.55-1.02; Units: MG/DL; Status: F Test: SODIUM LEVEL; Range: 136-145; Units: MEQ/L; Status: I Test: POTASSIUM SERUM; Range: 3.5-5.1; Units: MEQ/L; Status: I Test: CHLORIDE LEVEL; Range: 98-107; Units: MEQ/L; Status: I Test: CARBON DIOXIDE LEVEL; Range: 21-32; Units: MEQ/L; Status: I Test: ANION GAP; Range: 8-16; Units: MEQ/L; Status: I Test: CALCIUM LEVEL; Range: 8.5-10.1; Units: MG/DL; Status: I Test: GLOMERULAR FILTRATION RATE; Value: > 60.0; Range: >60; Status: F Test: SODIUM LEVEL; Value: 140; Range: 136-145; Units: MEQ/L; Status: F Test: POTASSIUM SERUM; Value: 4.4; Range: 3.5-5.1; Units: MEQ/L; Status: F Test: CHLORIDE LEVEL; Value: 108; Range: 98-107; Abnormal: Above high normal; Units: MEQ/L; Status: F Test: CARBON DIOXIDE LEVEL; Value: 26; Range: 21-32; Units: MEQ/L; Status: F Test: ANION GAP; Value: 6; Range: 8-16; Abnormal: Below low normal; Units: MEQ/L; Status: F Test: CALCIUM LEVEL; Value: 8.2; Range: 8.5-10.1; Abnormal: Below low normal; Units: MG/DL; Status: F Test Note: ; Units are mL/min/1.73 m2 Chronic Kidney Disease Staging per NKF: Stage I & II GFR >=60 Normal to Mildly Decreased Stage III GFR 30-59 Moderately Decreased Stage IV GFR 15-29 Severely Decreased Stage V GFR <15 Very Little GFR Left ESRD GFR <15 on SLIP MIXER Lab Order: CBC with Diff; SPEC'M 08/08/16 00:43 Test: WHITE BLOOD COUNT; Value: 8.5; Range: 4.0-10.0; Units: K/mm3; Status: F Test: RED BLOOD COUNT; Value: 4.49; Range: 4.00-5.40; Units: M/mm3; Status: F Test: HEMOGLOBIN; Value: 12.9; Range: 12.0-16.0; Units: g/dl; Status: F Test: HEMATOCRIT; Value: 39.7; Range: 36.0-47.0; Units: %; Status: F Test: MEAN CORPUSCULAR VOLUME; Value: 88.5; Range: 80.0-96.0; Units: fl; Status: F Test: MEAN CORPUSCULAR HEMOGLOBIN; Value: 28.8; Range: 27.0-33.0; Units: pg; Status: F Test: MEAN CORPUSCULAR HGB CONC; Value: 32.6; Range: 32.0-36.5; Units: g/dl; Status: F Test: RED CELL DISTRIBUTION WIDTH; Value: 12.9; Range: 11.5-14.5; Units: %; Status: F Test: PLATELET COUNT, AUTOMATED; Value: 173; Range: 150-450; Units: k/mm3; Status: F Test: NEUTROPHILS %; Value: 57.3; Range: 36.0-66.0; Units: %; Status: F Test: LYMPH %; Value: 34.4; Range: 24.0-44.0; Units: %; Status: F Test: MONO %; Value: 4.3; Range: 0.0-5.0; Units: %; Status: F Test: EOS %; Value: 1.4; Range: 0.0-3.0; Units: %; Status: F Test: BASO %; Value: 0.9; Range: 0.0-1.0; Units: %; Status: F Test: LARGE UNSTAINED CELL %; Value: 1.7; Range: 0.0-4.0; Units: %; Status: F Test: NEUTROPHILS #; Value: 4.9; Range: 1.8-7.7; Units: K/mm3; Status: F Test: LYMPH #; Value: 3.1; Range: 1.5-6.5; Units: K/mm3; Status: F Test: MONO #; Value: 0.4; Range: 0.0-0.8; Units: K/mm3; Status: F Test: EOS #; Value: 0.1; Range: 0.0-0.50; Units: K/mm3; Status: F Test: BASO #; Value: 0.1; Range: 0.0-0.2; Units: K/mm3; Status: F Test: LARGE UNSTAINED CELL #; Value: 0.2; Range: 0.0-0.4; Units: K/mm3; Status: F Lab Order: HCG,Serum Qualitative; 08/08/16 00:43 Test: HCG, SERUM QUALITATIVE; Value: NEGATIVE; Range: NEGATIVE; Status: F Lab Order: Lipase; 08/08/16 00:43 Test: LIPASE; Value: 147; Range: 73-393; Units: U/L; Status: F Lab Order: Liver Profile; 08/08/16 00:43 Test: AST/SGOT; Value: 18; Range: 15-37; Units: U/L; Status: F Test: ALT/SGPT; Value: 23; Range: 12-78; Units: U/L; Status: F Test: ALKALINE PHOSPHATASE; Value: 69; Range: 45-117; Units: U/L; Status: F Test: BILIRUBIN,TOTAL; Value: 0.3; Range: 0.2-1.0; Units: MG/DL; Status: F Test: BILIRUBIN,DIRECT; Value: < 0.1; Range: 0.0-0.2; Units: MG/DL; Status: F Test: TOTAL PROTEIN; Value: 6.5; Range: 6.4-8.2; Units: GM/DL; Status: F Test: ALBUMIN; Value: 3.3; Range: 3.2-5.2; Units: GM/DL; Status: F Test: ALBUMIN/GLOBULIN RATIO; Value: 1.03; Range: 1.00-1.93; Status: F Lab Order: Partial Thromboplastin Time; 08/08/16 00:43 Test: PARTIAL THROMBOPLASTIN TIME; Value: 31.3; Range: 26.6-37.1; Units: SECONDS; Status: F Lab Order: Prothrombin Time Profile\\E\\INR; 08/08/16 00:43 Test: PROTHROMBIN TIME; Value: 13.4; Range: 12.3-14.5; Units: SECONDS; Status: F Test: INR; Value: 1.01; Status: F Test Note: ; THERAPUTIC HUMAN INR VALUES INDICATIONS NORMAL RANGES PROPHYLAXIS/TREATMENT OF: VENOUS THROMBOSIS 2.0-3.0 PULMONARY EMBOLISM 2.0-3.0 PREVENTION OF SYSTEMIC EMBOLISM FROM: TISSUE HEART VALVES 2.0-3.0 ACUTE MYOCARDIAL INFARCTION 2.0-3.0 VALVULAR HEART DISEASE 2.0-3.0 ATRIAL FIBRILLATION 2.0-3.0 MECHANICAL VALVES(HIGH RISK) 2.5-3.5 RECURRENT MYOCARDIAL INFARCTION 2.5-3.5 Outcome: 08/08 02:40 Discharge Assessment: Patient awake, alert and oriented x 3. No cognitive and/or tm5 functional deficits noted. Patient verbalized understanding of disposition instructions. patient administered narcotics - no. 02:53 The patient is leaving AMA: AMA form signed, Notification of AMA status is made to the [facility] charge nurse, the ED attending physician. 02:57 Patient left against medical advice. tm5 02:57 Patient left the ED. tm5 06:04 Patient left the ED. mm11 Signatures: Rocio Zepeda, Reg Reg gb Mesfin Cunningham, DO mm11 Anita Garcia RN RN sls1 Rissa Mcclelland gr2 Elizabeth Butler RN RN [facility] Irma Reyna RN RN af2 Geraldine Hwang, Reg Reg hs2 Diandra SerranoRN RN tm5 Corrections: (The following items were deleted from the chart) 00:35 00:32 Awaiting ED physician evaluation. tm5 tm5 02:54 02:52 General: pt again calling staff to her room, pt appears upset that she hasn't tm5 been re-evaluated by , asking to have her IV saline lock removed because she wants to leave, Elizabeth Mccullough RN telling pt she will have to sign out AMA per MD, pt okay with this & still wanting to leave ER after AMA was reviewed with her & she was made aware of Risks & Benefits of staying or leaving ER. tm5 Chart Complete MTDD
== END 2016-08-08 02:45 | disposition left against medical advice (07) ==
LOC: M ED 22:59
DX: Z76.5 Malingerer [conscious simulation] (principal); M79.7 Fibromyalgia; Z86.19 Personal history of other infectious and parasitic diseases; Z72.0 Tobacco use; Z88.0 Allergy status to penicillin; Z91.030 Bee allergy status
CPT/HCPCS: 36415; 80048; 80076; 81025; 82150; 83690; 84703; 85025; 85610; 85730; 96374; 96375; 99284; J1885; J2405

== ENCOUNTER 2016-08-13 21:03 | Emergency (ER) | payer OTHER | END 2016-08-13 23:14 | disposition left against medical advice (07) | LOC: M ED 21:03 | DX: Z53.29 Procedure and treatment not carried out because of patient's decision for other reasons (principal) ==

== ENCOUNTER → 2017-02-19 | Outpatient (REF) | payer OTHER ==
[~2017-02-19] MED LIST changes: +GABA-282; +IBUP80TA PO; +ZITH250T PO; +ZITHTAB PO; +ZOFR4TAB3 PO
== END ==
LOC: M LAB REF 16:41
PROVIDERS: ATTEND Physician Assistant
DX: L03.311 Cellulitis of abdominal wall (principal)

== ENCOUNTER 2017-02-28 10:24 | Emergency (ER) | payer OTHER ==
[~2017-02-28] VITALS: Ht 172.7 cm; Wt 88.7 kg
[2017-02-28 10:24] VITALS: BP 117/63
[~2017-02-28 10:24] MED LIST changes: -GABA-282; -IBUP80TA PO; -ZITH250T PO; -ZITHTAB PO; -ZOFR4TAB3 PO
[2017-02-28] MEDS ORDERED: GABA-282 (10:32)
[2017-02-28] MEDS ORDERED: ZITH250T PO (10:58)
[2017-02-28] MEDS ORDERED: IBUP80TA PO (10:58)
[2017-02-28] MEDS ORDERED: IBUPROFEN 800 MG TAB PO ONE (11:00)
[2017-02-28] MEDS ORDERED: AZITHROMYCIN 250 MG TAB PO ONE (11:00)
[2017-02-28] MEDS ORDERED: ZOFR4TAB3 PO (11:17)
[2017-02-28] MEDS ORDERED: ZITHTAB PO (11:18)
[2017-02-28] MEDS ORDERED: ONDANSETRON 4 MG ORAL DISINTEGRATING TAB (S0181) PO ONE (11:30)
== END 2017-02-28 11:31 | disposition home or self-care (01) ==
LOC: M ED 10:24
DX: J02.0 Streptococcal pharyngitis (principal); Z72.0 Tobacco use

== ENCOUNTER 2017-08-22 00:31 | Emergency (ER) | payer OTHER ==
[2017-08-22 01:24] LABS: BASO % 0.4 % (0.0-1.0); EOS # 0.2 10^3/uL (0.0-0.50); EOS % 1.9 % (0.0-3.0); HEMATOCRIT 39.3 % (36.0-47.0); HEMOGLOBIN 13.3 g/dl (12.0-16.0); IMMATURE GRANULOCYTE % 0.2 % (0-0); LYMPH # 3.3 10^3/uL (1.5-6.5); LYMPH % 38.9 % (24.0-44.0); MEAN CORPUSCULAR HEMOGLOBIN 29.2 pg (27.0-33.0); MEAN CORPUSCULAR HGB CONC 33.8 g/dl (32.0-36.5); MEAN CORPUSCULAR VOLUME 86.2 fl (80.0-96.0); MONO # 0.4 10^3/uL (0.0-0.8); MONO % 5.1 % (0.0-5.0); NEUTROPHILS # 4.5 10^3/uL (1.8-7.7); NEUTROPHILS % 53.5 % (36.0-66.0); PLATELET COUNT, AUTOMATED 199 10^3/uL (150-450); RED BLOOD COUNT 4.56 10^6/uL (4.00-5.40); RED CELL DISTRIBUTION WIDTH 11.9 % (11.5-14.5); WHITE BLOOD COUNT 8.4 10^3/uL (4.0-10.0)
[2017-08-22 01:43] LABS: ALBUMIN 3.5 GM/DL (3.2-5.2); ALBUMIN/GLOBULIN RATIO 1.03 (1.00-1.93); ALKALINE PHOSPHATASE 76 U/L (45-117); ALT/SGPT 25 U/L (12-78); ANION GAP 5 MEQ/L (8-16); AST/SGOT 14 U/L (7-37); BILIRUBIN,DIRECT 0.1 MG/DL (0.0-0.2); BILIRUBIN,TOTAL 0.3 MG/DL (0.2-1.0); BLOOD UREA NITROGEN 9 MG/DL (7-18); CALCIUM LEVEL 8.5 MG/DL (8.5-10.1); CARBON DIOXIDE LEVEL 27 MEQ/L (21-32); CHLORIDE LEVEL 108 MEQ/L (98-107); CREATININE FOR GFR 0.65 MG/DL (0.55-1.30); ETHYL ALCOHOL (ETHANOL) 0.004 % (0.000-0.010); GLOMERULAR FILTRATION RATE > 60.0 (>60); GLUCOSE, FASTING 93 MG/DL (70-100); POTASSIUM SERUM 3.6 MEQ/L (3.5-5.1); SODIUM LEVEL 140 MEQ/L (136-145); TOTAL PROTEIN 6.9 GM/DL (6.4-8.2)
[2017-08-22 01:46] LABS: LACTIC ACID SEPSIS PROTOCOL 0.6 MMOL/L (0.4-2.0)
[2017-08-22 01:49] LABS: AMPHETAMINES LEVEL URINE NEGATIVE (NEGATIVE); BARBITURATES URINE NEGATIVE (NEGATIVE); BENZODIAZEPINES URINE NEGATIVE (NEGATIVE); CANNABINOIDS URINE POSITIVE (NEGATIVE); COCAINE METABOLITE URINE NEGATIVE (NEGATIVE); METHADONE URINE NEGATIVE (NEGATIVE); OPIATES URINE NEGATIVE (NEGATIVE); PHENCYCLIDINE URINE NEGATIVE (NEGATIVE)
[2017-08-22] MEDS: NS 1,000 ML IV (01:52)
[2017-08-22 02:32] LABS: CONTROL LINE HCG INT CTR LINE PRESENT; HCG, SERUM QUALITATIVE NEGATIVE (NEGATIVE)
[2017-08-22] MEDS ORDERED: ISOVUE-370 76% 100ML VIAL (Q9967) As Ordered (02:42)
== END 2017-08-22 04:31 | disposition home or self-care (01) ==
LOC: M ED 00:31
DX: R55 Syncope and collapse (principal); F17.200 Nicotine dependence, unspecified, uncomplicated
CPT/HCPCS: Q9967

== ENCOUNTER 2018-01-23 08:52 | Emergency (ER) | payer OTHER | END 2018-01-23 09:41 | disposition home or self-care (01) | LOC: M ED 08:52 | DX: H65.03 Acute serous otitis media, bilateral (principal); J30.9 Allergic rhinitis, unspecified; F41.9 Anxiety disorder, unspecified; F17.210 Nicotine dependence, cigarettes, uncomplicated; Z88.5 Allergy status to narcotic agent; Z88.1 Allergy status to other antibiotic agents; Z88.0 Allergy status to penicillin; Z79.899 Other long term (current) drug therapy; Z79.2 Long term (current) use of antibiotics | CPT/HCPCS: 99282 ==

== ENCOUNTER → 2018-08-22 | Outpatient (CLI) | payer OTHER ==
[~2018-08-22] MED LIST changes: +CEFD1CAP8; +FLON1SPR; +GABA-843; +GASTROGRAFIN SOLUTION 30ML (Q9963) As Ordered ONE; +IBUP80TA PO; +ISOVUE-370 76% 100ML VIAL (Q9967) As Ordered ONE; +MUCI600T37 PO; +SUDA30TA8 PO; +VALA1TAB2; +ZITH250T PO; +ZITHTAB PO; +ZOFR4TAB14 PO
--- NOTE | 2018-08-22 17:44 | REP ---
Clinical: Lower abdominal and pelvic/perineal pain. Technique: Axial contrast enhanced images from the lung bases to the pubic symphysis using oral (per protocol) and 100 ml Isovue 370 intravenous contrast material with coronal and sagittal re-formations. Findings: Lung bases are clear. Visualized heart and pericardium normal. Liver, spleen, pancreas, or bladder, bilateral adrenal glands and kidneys are normal. The enteric system including stomach, small and large bowel is without obstruction or acute inflammatory process. Normal cecum, terminal ileum and appendix are identified in the right lower quadrant. Pelvis demonstrates normal bladder and age-appropriate uterus/adnexa. No significant pelvic fluid or ascites. No adenopathy. No free air. 1 cm fat containing periumbilical hernia noted. Abdominal aorta and vasculature without aneurysm or dissection. Musculoskeletal structures are intact and normal. Impression: No acute abdominopelvic pathology appreciated. No free fluid, adenopathy, or free air. Electronically Signed by Anoop Garcia MD 08/22/2018 05:35 P
== END ==
LOC: M RAD 15:04
PROVIDERS: ATTEND Nurse Practitioner Adult Health
DX: R10.12 Left upper quadrant pain (principal)
CPT/HCPCS: 74177; Q9963; Q9967

== ENCOUNTER 2018-12-02 17:01 | Emergency (ER) | payer MEDICAID, OTHER, SELFPAY ==
[~2018-12-02] VITALS: Ht 172.7 cm; Wt 81.8 kg
[~2018-12-02 17:01] MED LIST changes: -GASTROGRAFIN SOLUTION 30ML (Q9963) As Ordered ONE; -ISOVUE-370 76% 100ML VIAL (Q9967) As Ordered ONE
[2018-12-02 17:02] VITALS: BP 126/57
[2018-12-02] MEDS ORDERED: VENTAER INH (17:07)
[2018-12-02] MEDS ORDERED: DOXYCYCLINE HYCLATE 100 MG TAB PO ONE (17:30)
[2018-12-02] MEDS ORDERED: predniSONE 20 MG TAB PO ONE (17:30)
[2018-12-02] MEDS ORDERED: PRED20TA PO (17:30)
[2018-12-02] MEDS ORDERED: MUCI600T31 PO (17:30)
[2018-12-02] MEDS ORDERED: NAPR-837 PO (17:30)
[2018-12-02] MEDS ORDERED: DOXY100C PO (17:30)
--- NOTE | 2018-12-02 18:54 | REP ---
PA and lateral chest: Comparison is 07/09/2015. The lung [place] are clear. The cardiac size is normal. The remy, mediastinum, and skeletal structures are unremarkable. Impression: Negative PA and lateral chest. There is no interval change. Electronically Signed by Christopher Ace MD 12/02/2018 06:45 P
== END 2018-12-02 18:15 | disposition home or self-care (01) ==
LOC: M ED 17:01
DX: H66.93 Otitis media, unspecified, bilateral (principal); J20.9 Acute bronchitis, unspecified; Z88.0 Allergy status to penicillin; Z88.1 Allergy status to other antibiotic agents; Z88.5 Allergy status to narcotic agent; Z91.030 Bee allergy status

== ENCOUNTER 2019-01-14 12:08 | Emergency (ER) | payer MEDICAID, OTHER ==
[~2019-01-14] VITALS: Ht 172.7 cm; Wt 89.5 kg
[~2019-01-14 12:08] MED LIST changes: +DOXY100C PO; +MUCI600T31 PO; +NAPR-837 PO; +PRED20TA PO; +VENTAER INH
[2019-01-14] MEDS ORDERED: NAPR-837 PO (14:52)
[2019-01-14 15:07] VITALS: BP 113/77
== END 2019-01-14 15:09 | disposition home or self-care (01) ==
LOC: M ED 12:08
DX: M75.21 Bicipital tendinitis, right shoulder (principal); G56.21 Lesion of ulnar nerve, right upper limb; F41.9 Anxiety disorder, unspecified; Z72.0 Tobacco use; Z88.0 Allergy status to penicillin; Z91.030 Bee allergy status; Z88.5 Allergy status to narcotic agent; Z88.1 Allergy status to other antibiotic agents

== ENCOUNTER 2019-06-10 17:10 | Observation (INO) | payer OTHER ==
[~2019-06-10] VITALS: Ht 172.7 cm; Wt 89.9 kg
[2019-06-10] MEDS ORDERED: PRED20TA PO (17:19)
[2019-06-10] MEDS ORDERED: ALBU83IN INH (17:19)
--- NOTE | 2019-06-10 17:47 | REP ---
Two-view chest: 06/10/2019. Indication: Ischemia. Comparison: 12/02/2018. Findings: The lungs are clear. There is no pleural effusion or pneumothorax. The cardiomediastinal silhouette is unremarkable. Impression: No acute cardiopulmonary process. Electronically Signed by Mateo Maldonado DO 06/10/2019 05:37 P
[2019-06-10] MEDS ORDERED: NS 1,000 ML IV ONE (18:00)
[2019-06-10] MEDS ORDERED: IPRATROPIUM 0.5MG/ALBUTEROL 2.5MG INH SOL UD 3ML (DUONEB)(J7620) NEB PRN (18:00)
[2019-06-10] MEDS ORDERED: methylPREDNISolone INJ 125 MG/2 ML VIAL (J2930) IV ONE (18:00)
[2019-06-10] MEDS ORDERED: IPRATROPIUM 0.5MG/ALBUTEROL 2.5MG INH SOL UD 3ML (DUONEB)(J7620) NEB STA (18:15)
[2019-06-10] MEDS: MAG SULF 1GM/100ML (MAG RUN) 1 GM in IV 1 EA IV SCH ×2 (18:38→19:12)
[2019-06-10 18:42] LABS: ABG BASE EXCESS -0.8 (-2.0-2.0); ABG HCO3 19.9 MEQ/L (22.0-26.0); ABG O2 SATURATION 96.9 % (95.0-99.0); ABG PARTIAL PRESSURE CO2 24.3 mmHg (35.0-45.0); ABG PARTIAL PRESSURE O2 79.4 mmHg (75.0-100.0); ABG STANDARD HCO3 23.8 MEQ/L (22.0-26.0); ABG TOTAL CO2 20.7 MEQ/L (22.0-29.0); ABG pH (ARTERIAL) 7.532 UNITS (7.350-7.450)
[2019-06-10 18:46] LABS: BASO % 0.2 % (0.0-1.0); EOS # 0.1 10^3/uL (0.0-0.5); EOS % 0.5 % (0.0-3.0); HEMOGLOBIN 14.3 g/dl (12.0-15.5); LYMPH # 2.1 10^3/uL (1.5-5.0); LYMPH % 19.7 % (24.0-44.0); MEAN CORPUSCULAR HEMOGLOBIN 29.2 pg (27.0-33.0); MEAN CORPUSCULAR VOLUME 85.9 fl (80.0-96.0); MONO # 0.8 10^3/uL (0.0-0.8); MONO % 7.4 % (0.0-5.0); NEUTROPHILS # 7.7 10^3/uL (1.5-8.5); NEUTROPHILS % 71.8 % (36.0-66.0); PLATELET COUNT, AUTOMATED 182 10^3/uL (150-450); RED BLOOD COUNT 4.89 10^6/uL (4.00-5.40); WHITE BLOOD COUNT 10.7 10^3/uL (4.0-10.0)
[2019-06-10 18:48] LABS: VENOUS BASE EXCESS -2.4 (-2.0-2.0); VENOUS HCO3 19.8 MEQ/L (23.0-27.0); VENOUS O2 SATURATION 76.1 % (60.0-80.0); VENOUS PARTIAL PRESSURE CO2 28.1 mmHg (38.0-50.0); VENOUS PH 7.465 UNITS (7.330-7.430); VENOUS STANDARD HCO3 21.9 MEQ/L; VENOUS TOTAL CO2 20.6 MEQ/L (24.0-28.0)
[2019-06-10] MEDS ORDERED: MAGNESIUM *L&D* 4 GM/100 ML BAG (40MG/ML) (J3475) IV ONE (19:15)
[2019-06-10 19:30] LABS: HCG, SERUM QUALITATIVE NEGATIVE (NEGATIVE)
[2019-06-10] MEDS ORDERED: MORPHINE 4 MG/ML 1ML VIAL/SYRINGE (J2270) IV ONE ×2 (19:30→21:30)
[2019-06-10 19:31] LABS: BLOOD UREA NITROGEN 7 MG/DL (7-18); CALCIUM LEVEL 9.4 MG/DL (8.5-10.1); CARBON DIOXIDE LEVEL 23 MEQ/L (21-32); CHLORIDE LEVEL 105 MEQ/L (98-107); CREATININE FOR GFR 0.74 MG/DL (0.55-1.30); GLOMERULAR FILTRATION RATE > 60.0 (>60); GLUCOSE, FASTING 97 MG/DL (70-100); POTASSIUM SERUM 3.8 MEQ/L (3.5-5.1); SODIUM LEVEL 138 MEQ/L (136-145)
[2019-06-10] MEDS ORDERED: ISOVUE-370 76% 100ML VIAL (Q9967) As Ordered ONE (19:33)
[2019-06-10] MEDS ORDERED: MAG SULF IV ONE (20:15)
--- NOTE | 2019-06-10 20:38 | REPVR ---
PROCEDURE INFORMATION: Exam: CT Angiography Chest With Contrast Exam date and time: 06/10/2019 7:53 PM Age: 28 years old Clinical history: Chest pain; Additional info: Chest tender, vape HX, dyspnic TECHNIQUE: Imaging protocol: Computed tomographic angiography of the chest with intravenous contrast. 3D rendering: MIP reconstructed images were created and reviewed. Radiation optimization: All CT scans at this facility use at least one of these dose optimization techniques: automated exposure control; mA and/or kV adjustment per patient size (includes targeted exams where dose is matched to clinical indication); or iterative reconstruction. Contrast material: ISOVUE 370; Contrast volume: 100 ml; Contrast route: IV; COMPARISON: CR Chest, 2 view PA, Lat 06/10/2019 5:31 PM FINDINGS: Pulmonary arteries: There is opacification of the pulmonary arteries are without evidence of pulmonary embolus. Aorta: There is opacification of the aorta which appears intact. Lungs: There is a 5 CM oval area of hazy infiltrate right upper lung anterior position. There is a 2 cm smaller area more posteriorly in the right upper lobe. There are 2 small areas of infiltrate left upper lung anterior in position measuring 2 CM each. It is possible that these areas are secondary to the history of vaping. Interstitial pneumonitis bacterial or viral is another consideration. Chronic or acute interstitial lung disease including sarcoidosis, histiocytosis, allergic pneumonitis are in the differential. Pleural space: Unremarkable. No pneumothorax. No pleural effusion. Heart: The heart is normal in size and there is no pericardial effusion. Lymph nodes: There are moderate sized lymph nodes in the mediastinum and the right and left hilar region. Considerations include inflammatory lymph nodes, sarcoidosis, lymphoma. Bones/joints: There is no evidence of bony abnormality. Soft tissues: Unremarkable. IMPRESSION: 1. There are moderate size mediastinal and hilar lymph nodes. These could be inflammatory lymph nodes. Enlarged lymph nodes secondary to sarcoidosis or lymphoma are also considerations. 2. 5 cm hazy area of infiltrate at the right upper lung and additional smaller areas of infiltrate right and left upper lung may be the result of vaping. Other considerations listed above. Electronically signed by: Mayco Looney On 06/10/2019 20:38:10 PM
[2019-06-10 22:15] LABS: ABG BASE EXCESS -2.1 (-2.0-2.0); ABG HCO3 20.9 MEQ/L (22.0-26.0); ABG O2 SATURATION 97.1 % (95.0-99.0); ABG PARTIAL PRESSURE CO2 31.4 mmHg (35.0-45.0); ABG PARTIAL PRESSURE O2 90.8 mmHg (75.0-100.0); ABG STANDARD HCO3 22.7 MEQ/L (22.0-26.0); ABG TOTAL CO2 21.9 MEQ/L (22.0-29.0); ABG pH (ARTERIAL) 7.441 UNITS (7.350-7.450)
[2019-06-10] MEDS ORDERED: KETOROLAC TROMETHAMINE 10 MG TAB PO PRN (22:45)
[2019-06-10] MEDS ORDERED: ALBUTEROL SULFATE 2.5 MG/0.5 ML INH NEB SOLN NEB PRN (22:45)
[2019-06-10] MEDS ORDERED: GABA-843 PO (22:48)
--- NOTE | 2019-06-10 23:04 | HPEPDOC ---
General Date of Admission 06/10/19 Date of Service: Jun 10, 2019 Chief Complaint The patient is a 28-year-old female admitted with a reason for visit of SOB. Source: Patient Exam Limitations: No limitations Timing/Duration: Day(s) Severity: Severe Associated Symptoms: Chest Pain, Cough, Shortness of breath History of Present Illness Patient is 28 years old female with medical history of asthma presented hospital with severe shortness of breath. Patient stated that for 5 days she has been having increased shortness of breath which started after she developed upper respiratory infection with chills, dry cough, runny nose and congested chest. Patient went to urgent care where she received prednisone with taper. However she didn't have alleviation of his symptoms. Of note, patient is active smoker and she uses vaping. Today patient did have increased shortness of breath with increased lateral chest pain with deep breathe. In emergency room patient was found to have white blood count of 10.7, blood gas showed mild respiratory alkalosis. Patient received IV steroids, IV magnesium and treatment with inhalers with positive effect. Chest CT was done and showed moderate size mediastinal and hilar lymph nodes. These could be inflammatory lymph nodes. Enlarged lymph nodes secondary to sarcoidosis or lymphoma are also considerations. 2. 5 cm hazy area of infiltrate at the right upper lung and additional smaller areas of infiltrate right and left upper lung may be the result of vaping. Patient denies fever, nausea, vomiting, palpitations, diarrhea or dysuria Home Medications Scheduled Gabapentin (Gabapentin) 300 Mg Capsule, 300 MG PO TID, (Reported) Prednisone (Prednisone) 20 Mg Tablet, 20 MG PO BID, (Reported) Scheduled PRN Albuterol Sulf (Albuterol Sulfate) 2.5 Mg/3 Ml Vial.neb, 1 VIAL INH Q4H PRN for SOB/WHEEZING, (Reported) Albuterol Sulfate (Ventolin Hfa) 18 Gm Hfa.aer.ad, 2 PUFF INH Q4H PRN for wheezing, (Reported) Allergies Coded Allergies: Penicillins (Verified Allergy, Intermediate, HIVES, 12/02/18) codeine (Verified Allergy, Intermediate, HIVES, 12/02/18) bee venom protein (honey bee) (Verified Allergy, Unknown, 12/02/18) vancomycin (Verified Adverse Reaction, Intermediate, SEVERE ITCHING OF SCALP, 12/02/18) hydromorphone (Verified Adverse Reaction, Mild, VOMITTING, 12/02/18) Past Medical History Medical History asthma Family History Father has a stroke, hypertension, coronary artery diseases Mother has asthma Social History * Smoker: current smoker Alcohol: Denies Drugs: marijuana, other (vaping) A-FIB/CHADSVASC A-FIB History Current/History of A-Fib/PAF?: No Current PO Anticoag Therapy: No Review of Systems Constitutional: Reports: Chills Eyes: Denies: Pain, Vision change ENT: Denies: Head Aches, Ear Pain Skin: Denies: Rash, Lesions Pulmonary: Reports: Dyspnea, Cough, Pleuritic Chest Pain Cardiovascular: Denies: Chest Pain, Palpitations Gastrointestinal: Denies: Nausea Genitourinary: Denies: Dysuria, Frequency Hematologic: Denies: Bruising, Bleeding Excessively Endocrine: Denies: Polydipsia Musculoskeletal: Denies: Neck Pain, Back Pain Neurological: Denies: Weakness, Numbness Psych: Reports: Mood Normal Physical Examination General Exam: Positive: Alert, Cooperative Eye Exam: Positive: PERRLA ENT Exam: Positive: Atraumatic Neck Exam: Positive: Supple; Negative: JVD Chest Exam: Positive: Wheezing Heart Exam: Positive: Rate Normal Telemetry: Positive: No significant arrhythmia Abdomen Exam: Positive: Normal bowel sounds Extremity Exam: Negative: Clubbing, Cyanosis Skin Exam: Positive: Nl turgor and temperature Neuro Exam: Positive: Normal Gait, Cranial Nerves 3-12 NL Psych Exam: Positive: Mental status NL Vital Signs Vital Signs Date Time Temp Pulse Resp B/P (MAP) Pulse Ox O2 Delivery O2 Flow Rate FiO2 06/10/19 22:42 22 100 06/10/19 21:30 77 163/79 (107) 06/10/19 19:44 Room Air 06/10/19 17:10 97.7 Laboratory Data Labs 24H Laboratory Tests 2 06/10/19 18:30: Blood Gas Bicarbonate Standard 23.8, Arterial Blood pH 7.532H, Arterial Blood Partial Pressure CO2 24.3L, Arterial Blood Partial Pressure O2 79.4, Arterial Blood Total CO2 20.7L, Arterial Blood HCO3 19.9L, Arterial Blood Base Excess - 0.8, Arterial Blood Oxygen Saturation 96.9 06/10/19 18:39: Blood Gas Bicarbonate Standard 21.9, Immature Granulocyte % (Auto) 0.4, Neutrophils (%) (Auto) 71.8H, Lymphocytes (%) (Auto) 19.7L, Monocytes (%) (Auto) 7.4H, Eosinophils (%) (Auto) 0.5, Basophils (%) (Auto) 0.2, Neutrophils # (Auto) 7.7, Lymphocytes # (Auto) 2.1, Monocytes # (Auto) 0.8, Eosinophils # (Auto) 0.1, Basophils # (Auto) 0.0, Nucleated Red Blood Cells % (auto) 0.0, Venous Blood pH 7.465H, Venous Blood Partial Pressure CO2 28.1L, Venous Blood Partial Pressure O2 38.0, Venous Blood Total Carbon Dioxide 20.6L, Venous Blood HCO3 19.8L, Venous Blood Oxygen Saturation 76.1, Venous Blood Base Excess -2.4L, Anion Gap 10, Glomerular Filtration Rate > 60.0, Calcium Level 9.4, Thyroid Stimulating Hormone (TSH) 2.990, Human Chorionic Gonadotropin, Qual NEGATIVE 06/10/19 21:21: Urine Color YELLOW, Urine Appearance CLEAR, Urine pH 6.0, Urine Specific [place] 1.010, Urine Protein NEGATIVE, Urine Glucose (UA) NEGATIVE, Urine Ketones TRACEH, Urine Blood NEGATIVE, Urine Nitrite NEGATIVE, Urine Bilirubin NEGATIVE, Urine Urobilinogen 0.2, Urine Leukocyte Esterase NEGATIVE, Urine WBC (Auto) 1, Urine RBC (Auto) 3, Urine Hyaline Casts (Auto) 0, Urine Bacteria (Auto) NEGAT CLARE, Urine Squamous Epithelial Cells 1, Urine Sperm (Auto) 06/10/19 21:48: Blood Gas Bicarbonate Standard 22.7, Arterial Blood pH 7.441, Arterial Blood Partial Pressure CO2 31.4L, Arterial Blood Partial Pressure O2 90.8, Arterial Blood Total CO2 21.9L, Arterial Blood HCO3 20.9L, Arterial Blood Base Excess - 2.1L, Arterial Blood Oxygen Saturation 97.1 CBC/BMP Laboratory Tests 06/10/19 18:39 Microbiology Microbiology 06/10/19 Respiratory Virus Panel (PCR) ([facility]) - Final, Complete Human Rhinovirus/Enterovirus Assessment/Plan Patient is 28 years old female with medical history of asthma presented hospital with severe shortness of breath. Patient stated that for 5 days she has been having increased shortness of breath which started after she developed upper respiratory infection with chills, dry cough, runny nose and congested chest. Patient went to urgent care where she received prednisone with taper. Patient was diagnosed with asthma exacerbation. Problems (1) Asthma exacerbation Status: Acute Problem Text: Most likely secondary to viral infection Inhalers, IV steroids Respiratory panel (2) Respiratory distress Status: Acute Problem Text: See above (3) Lymphadenopathy, hilar Status: Acute Problem Text: CTA scan showed findings concerning for infectious process, brayden coidosis or lymphoma. Enlarged lymph nodes and changes of lung parenchyma could be attributed to vaping, however sarcoidosis and possible lymphoma needs to be ruled out Consider tobacco sorter consult in the morning Plan / VTE VTE Prophylaxis Ordered?: Yes CHUY MELGAR DO Jun 10, 2019 23:04
[2019-06-11 02:00] VITALS: BP 129/67
[2019-06-11] MEDS: methylPREDNISolone INJ 125 MG/2 ML VIAL (J2930) IV SCH ×2 (02:11→09:21)
[2019-06-11] MEDS: traMADol ER 100MG TABLET (ULTRAM ER) PO PRN ×2 (02:12→10:42)
[2019-06-11] MEDS: IPRATROPIUM 0.5MG/ALBUTEROL 2.5MG INH SOL UD 3ML (DUONEB)(J7620) NEB SCH ×2 (02:19→08:00)
[2019-06-11 07:48] LABS: HEMATOCRIT 43.5 % (36.0-47.0); HEMOGLOBIN 14.5 g/dl (12.0-15.5); MEAN CORPUSCULAR HEMOGLOBIN 28.9 pg (27.0-33.0); MEAN CORPUSCULAR HGB CONC 33.3 g/dl (32.0-36.5); MEAN CORPUSCULAR VOLUME 86.8 fl (80.0-96.0); PLATELET COUNT, AUTOMATED 191 10^3/uL (150-450); RED BLOOD COUNT 5.01 10^6/uL (4.00-5.40); WHITE BLOOD COUNT 6.9 10^3/uL (4.0-10.0)
[2019-06-11 08:09] LABS: BLOOD UREA NITROGEN 9 MG/DL (7-18); CALCIUM LEVEL 8.9 MG/DL (8.5-10.1); CARBON DIOXIDE LEVEL 24 MEQ/L (21-32); CHLORIDE LEVEL 108 MEQ/L (98-107); CREATININE FOR GFR 0.62 MG/DL (0.55-1.30); GLOMERULAR FILTRATION RATE > 60.0 (>60); GLUCOSE, FASTING 124 MG/DL (70-100); MAGNESIUM LEVEL 2.7 MG/DL (1.8-2.4); POTASSIUM SERUM 4.7 MEQ/L (3.5-5.1); SODIUM LEVEL 139 MEQ/L (136-145)
[2019-06-11] MEDS ORDERED: HEPARIN SOD (PORCINE) 5000 UNITS/ML VIAL SC SCH (09:00)
[2019-06-11] MEDS ORDERED: SYMBICORT 80/4.5MCG INHALER 6GM INH SCH (09:00)
[2019-06-11] MEDS ORDERED: NICOTINE 14 MG/24 HR TRANSDERMAL TD SCH (09:00)
[2019-06-11] MEDS ORDERED: BENZ200C70 PO (11:07)
--- NOTE | 2019-06-11 11:24 | DS.PDOC ---
Discharge Summary General Date of Admission Jun 10, 2019 at 17:11 Date of Discharge 06/11/2019 Attending Physician: DEZ GUIDRY MD Discharge Summary PROCEDURES PERFORMED DURING STAY: None. ADMITTING DIAGNOSES: 1. Asthma exacerbation. DISCHARGE DIAGNOSES: 1. Asthma exacerbation secondary to human rhinovirus. COMPLICATIONS/CHIEF COMPLAINT: Asthma Exacerbation. HISTORY OF PRESENT ILLNESS: 28-year-old female with past medical history of asthma, smoking, and draping was admitted for asthma exacerbation secondary to human rhinovirus. Patient was treated with nebulizer treatments and IV steroids, reports significant improvement overnight, patient is agitated regarding her hospitalization, which is to go home. Patient is currently ambulating on room air without any difficulty, no drops in oxygen saturation, not wheezing. Currently, scattered rhonchi appreciated. Patient reports improvement in cough, dyspnea, continues to have mild to moderate nonproductive cough. CT scan reviewed, discussed results with the patient, advised patient to follow with pulmonary in the outpatient setting, will likely require repeat imaging in 4-6 weeks as findings may not be completely related to viral infection. Patient understand and agrees with following up with director of education and primary care physician. Patient given instructions on when to return to the hospital, including if she develops worsening fever, cough or productive sputum. HOSPITAL COURSE: As above. DISCHARGE MEDICATIONS: Please see below. ALLERGIES: Please see below. PHYSICAL EXAMINATION: VITAL SIGNS: Please see below. GENERAL: No distress HEENT: Normocephalic, atraumatic, moist mucous membranes NECK: Supple CARDIOVASCULAR EXAMINATION: S1, S2, no murmurs RESPIRATORY EXAMINATION: Scattered rhonchi, no wheezing ABDOMINAL EXAMINATION: Soft, nontender, nondistended, positive bowel sounds EXTREMITIES: Range of motion intact SKIN: No rash NEUROLOGICAL EXAMINATION: Alert and oriented 3, no focal deficits PSYCHIATRIC EXAMINATION: Calm and cooperative LABORATORY DATA: Please see below. IMAGING: CT with lymphadenopathy and groundglass infiltrate in the left upper lobe PROGNOSIS: Good ACTIVITY: As tolerated. DIET: Regular DISCHARGE PLAN: Patient will follow up with director of education and PCP in 1-2 weeks DISPOSITION: Home. DISCHARGE INSTRUCTIONS: 1. As above. DISCHARGE CONDITION: Stable. TIME SPENT ON DISCHARGE: Greater than 35 minutes. Vital Signs/I&Os Vital Signs Date Time Temp Pulse Resp B/P (MAP) Pulse Ox O2 Delivery O2 Flow Rate FiO2 06/11/19 02:00 96.5 81 19 129/67 (87) 93 Room Air I&O- Last 24 Hours up to 6 AM 06/11/19 06:00 Intake Total 1490 ml Output Total 0 ml Balance 1490 ml Laboratory Data Labs 24H Laboratory Tests 2 06/10/19 18:30: Blood Gas Bicarbonate Standard 23.8, Arterial Blood pH 7.532H, Arterial Blood Partial Pressure CO2 24.3L, Arterial Blood Partial Pressure O2 79.4, Arterial Blood Total CO2 20.7L, Arterial Blood HCO3 19.9L, Arterial Blood Base Excess - 0.8, Arterial Blood Oxygen Saturation 96.9 06/10/19 18:39: Blood Gas Bicarbonate Standard 21.9, Immature Granulocyte % (Auto) 0.4, Neut rophils (%) (Auto) 71.8H, Lymphocytes (%) (Auto) 19.7L, Monocytes (%) (Auto) 7.4H, Eosinophils (%) (Auto) 0.5, Basophils (%) (Auto) 0.2, Neutrophils # (Auto) 7.7, Lymphocytes # (Auto) 2.1, Monocytes # (Auto) 0.8, Eosinophils # (Auto) 0.1, Basophils # (Auto) 0.0, Nucleated Red Blood Cells % (auto) 0.0, Venous Blood pH 7.465H, Venous Blood Partial Pressure CO2 28.1L, Venous Blood Partial Pressure O2 38.0, Venous Blood Total Carbon Dioxide 20.6L, Venous Blood HCO3 19.8L, Venous Blood Oxygen Saturation 76.1, Venous Blood Base Excess -2.4L, Anion Gap 10, Glomerular Filtration Rate > 60.0, Calcium Level 9.4, Thyroid Stimulating Hormone (TSH) 2.990, Human Chorionic Gonadotropin, Qual NEGATIVE 06/10/19 21:21: Urine Color YELLOW, Urine Appearance CLEAR, Urine pH 6.0, Urine Specific [place] 1.010, Urine Protein NEGATIVE, Urine Glucose (UA) NEGATIVE, Urine Ketones TRACEH, Urine Blood NEGATIVE, Urine Nitrite NEGATIVE, Urine Bilirubin NEGATIVE, Urine Urobilinogen 0.2, Urine Leukocyte Esterase NEGATIVE, Urine WBC (Auto) 1, Urine RBC (Auto) 3, Urine Hyaline Casts (Auto) 0, Urine Bacteria (Auto) NEGATIVE, Urine Squamous Epithelial Cells 1, Urine Sperm (Auto) 06/10/19 21:48: Blood Gas Bicarbonate Standard 22.7, Arterial Blood pH 7.441, Arterial Blood P artial Pressure CO2 31.4L, Arterial Blood Partial Pressure O2 90.8, Arterial Blood Total CO2 21.9L, Arterial Blood HCO3 20.9L, Arterial Blood Base Excess - 2.1L, Arterial Blood Oxygen Saturation 97.1 06/11/19 07:08: Nucleated Red Blood Cells % (auto) 0.0, Anion Gap 7L, Glomerular Filtration Rate > 60.0, Calcium Level 8.9, Magnesium Level 2.7H CBC/BMP Laboratory Tests 06/10/19 18:39 06/11/19 07:08 Microbiology Microbiology 06/10/19 Respiratory Virus Panel (PCR) ([facility]) - Final, Complete Human Rhinovirus/Enterovirus Discharge Medications Scheduled Gabapentin (Gabapentin) 300 Mg Capsule, 300 MG PO TID, (Reported) Scheduled PRN Albuterol Sulf (Albuterol Sulfate) 2.5 Mg/3 Ml Vial.neb, 1 VIAL INH Q4H PRN for SOB/WHEEZING, (Reported) Albuterol Sulfate (Ventolin Hfa) 18 Gm Hfa.aer.ad, 2 PUFF INH Q4H PRN for wheezing, (Reported) Benzonatate (Benzonatate) 200 Mg Capsule, 200 MG PO TIDP PRN for cough Allergies Coded Allergies: Penicillins (Verified Allergy, Intermediate, HIVES, 12/02/18) codeine (Verified Allergy, Intermediate, HIVES, 12/02/18) bee venom protein (honey bee) (Verified Allergy, Unknown, 12/02/18) vancomycin (Verified Adverse Reaction, Intermediate, SEVERE ITCHING OF SCALP, 12/02/18) hydromorphone (Verified Adverse Reaction, Mild, VOMITTING, 12/02/18) DEZ GUIDRY MD Jun 11, 2019 11:24
== END 2019-06-11 12:05 | disposition home or self-care (01) ==
LOC: M ED 17:10 → M ED INP 17:11 → M MS5PR 06-11 01:53
PROVIDERS: ADMIT Internal Medicine; ATTEND Internal Medicine
DX: J45.901 Unspecified asthma with (acute) exacerbation (principal); B97.89 Other viral agents as the cause of diseases classified elsewhere; R59.0 Localized enlarged lymph nodes; R06.03 Acute respiratory distress; R06.02 Shortness of breath; F17.210 Nicotine dependence, cigarettes, uncomplicated; F17.290 Nicotine dependence, other tobacco product, uncomplicated; Z79.899 Other long term (current) drug therapy; Z79.52 Long term (current) use of systemic steroids; Z88.0 Allergy status to penicillin; Z88.5 Allergy status to narcotic agent; Z88.1 Allergy status to other antibiotic agents; Z91.030 Bee allergy status
CPT/HCPCS: 36415; 36600; 71046; 71275; 80048; 81001; 82803; 83735; 84443; 84703; 85025; 85027; 87486; 87581; 87633; 87798; 93041; 94640; 96365; 96375; 96376; 99285; J2270; J2930; J3475; Q9967

== ENCOUNTER 2019-06-14 13:30 | Observation (INO) | payer OTHER ==
[~2019-06-14] VITALS: Ht 172.7 cm; Wt 89.5 kg
[~2019-06-14 13:30] MED LIST changes: +ALBU83IN INH; +BENZ200C70 PO; +GABA-843 PO
[2019-06-14] MEDS ORDERED: NS 1,000 ML IV ONE (14:00)
[2019-06-14] MEDS ORDERED: methylPREDNISolone INJ 125 MG/2 ML VIAL (J2930) IV ONE (14:00)
[2019-06-14] MEDS ORDERED: IPRATROPIUM 0.5MG/ALBUTEROL 2.5MG INH SOL UD 3ML (DUONEB)(J7620) NEB ONE (14:00)
[2019-06-14] MEDS ORDERED: ALBUTEROL SULFATE 2.5 MG/0.5 ML INH NEB SOLN INH ONE (14:00)
[2019-06-14 14:04] LABS: BASO % 0.2 % (0.0-1.0); EOS # 0.1 10^3/uL (0.0-0.5); EOS % 0.3 % (0.0-3.0); HEMATOCRIT 44.7 % (36.0-47.0); HEMOGLOBIN 15.2 g/dl (12.0-15.5); MEAN CORPUSCULAR HEMOGLOBIN 29.3 pg (27.0-33.0); MEAN CORPUSCULAR VOLUME 86.3 fl (80.0-96.0); MONO % 5.3 % (0.0-5.0); NEUTROPHILS # 14.3 10^3/uL (1.5-8.5); NEUTROPHILS % 77.5 % (36.0-66.0); PLATELET COUNT, AUTOMATED 262 10^3/uL (150-450); RED BLOOD COUNT 5.18 10^6/uL (4.00-5.40); WHITE BLOOD COUNT 18.4 10^3/uL (4.0-10.0)
[2019-06-14 14:16] LABS: ALBUMIN 3.9 GM/DL (3.2-5.2); ALT/SGPT 32 U/L (12-78); BILIRUBIN,DIRECT 0.2 MG/DL (0.0-0.2); BILIRUBIN,TOTAL 0.8 MG/DL (0.2-1.0); BLOOD UREA NITROGEN 10 MG/DL (7-18); CALCIUM LEVEL 9.5 MG/DL (8.5-10.1); CARBON DIOXIDE LEVEL 25 MEQ/L (21-32); CHLORIDE LEVEL 104 MEQ/L (98-107); CREATININE FOR GFR 0.75 MG/DL (0.55-1.30); GLOMERULAR FILTRATION RATE > 60.0 (>60); GLUCOSE, FASTING 90 MG/DL (70-100); SODIUM LEVEL 139 MEQ/L (136-145); TOTAL PROTEIN 7.5 GM/DL (6.4-8.2)
[2019-06-14 14:17] LABS: HCG, SERUM QUALITATIVE NEGATIVE (NEGATIVE)
--- NOTE | 2019-06-14 14:51 | REP ---
REASON: Cough and dyspnea. FINDINGS: The technique utilized in obtaining the radiograph has magnified the cardiac silhouette and accentuated the interstitial markings. The superior mediastinal structures are midline. The cardiac silhouette is unremarkable in size, shape, and position. The diaphragmatic surfaces of the lungs are regular, and the costophrenic angles are clear. The pulmonary munroe are clear. The imaged osseous structures are intact. IMPRESSION: There is no acute cardiopulmonary disease. Electronically Signed by Sacha Conti DO 06/14/2019 03:09 P
[2019-06-14] MEDS ORDERED: ISOVUE-370 76% 100ML VIAL (Q9967) As Ordered ONE (16:05)
[2019-06-14] MEDS ORDERED: NORCO, ANEXSIA 5/325MG TABLET (HYDROcodone/ACETAMINOPHEN) PO ONE (16:30)
--- NOTE | 2019-06-14 18:08 | HPEPDOC ---
[facility] Medical History & Physical Date of Admission Jun 14, 2019 Date of Service: Jun 14, 2019 History and Physical CHIEF COMPLAINT: SOB HISTORY OF PRESENT ILLNESS: Patient is a 28-year-old with past medical history of asthma controlled on inhalers, current smoker, presents with worsening shortness of breath. Patient was recently discharged 06/11/2019 with a diagnosis of human rhinovirus, and was educated to avoid pulmonary toxins. From discharge to today's ED visit patient smoked a total of 8 cigarettes, and smokes pot yesterday. She reports worsening shortness of breath, right-sided, which was slightly alleviated with home inhalers. In the ED, she did receive nebulized treatments. She improved her symptoms. She does have leukocytosis, chest x-ray was negative for acute processes, chest CT upon my review is also negative for any pulmonary traits, and does not appear to have PE. She denies any fevers, headaches, nausea, vomiting, abdominal pain. ROS: see above, HCV, fibromyalgia PMH: See above. PSH: None Family history: Reviewed with patient and noncontributory Social history: See above Allergies: pcn: hives PHYSICAL EXAMINATION: VITAL SIGNS: Please see below. GENERAL: tripoding, saturating well on room air HEENT: Normocephalic, atraumatic, moist mucous membranes NECK: Supple CARDIOVASCULAR EXAMINATION: S1, S2, no murmurs RESPIRATORY EXAMINATION: Wheezing throughout ABDOMINAL EXAMINATION: Soft, nontender, nondistended, positive bowel sounds EXTREMITIES: no edema SKIN: No rash NEUROLOGICAL EXAMINATION: Alert and oriented 3, no focal deficits PSYCHIATRIC EXAMINATION: Calm and cooperative, appropriate affect, has capacity Imaging and labs: See above ASSESSMENT: Patient is a 28-year-old with past medical history of asthma controlled on inhalers, current smoker, presents worsening asthma exacerbation after discharge on 06/11/2019 with tobacco and marijuana insults after discharge. . PLAN: # Asthma Exacerbation: We'll start patient on IV steroids and transition to by mouth, scheduled nebulized treatments, droplet precautions, and sx treatment #Tobacco dependence: Nicotine patch #. Fibromyalgia: Continue home meds #. Hepatitis C: Currently not on medications, follow-up as outpatient. #DVT prophylaxis: Enox Full code . Vital Signs Vital Signs Date Time Temp Pulse Resp B/P (MAP) Pulse Ox O2 Delivery O2 Flow Rate FiO2 06/14/19 17:27 32 06/14/19 15:00 101 95 11/24/19 14:33 119/76 (90) 06/14/19 13:45 Room Air 06/14/19 13:30 98.5 Laboratory Data Labs 24H Laboratory Tests 2 06/14/19 13:46: Immature Granulocyte % (Auto) 0.7, Neutrophils (%) (Auto) 77.5H, Lymphocytes (%) (Auto) 16.0L, Monocytes (%) (Auto) 5.3H, Eosinophils (%) (Auto) 0.3, Basophils (%) (Auto) 0.2, Neutrophils # (Auto) 14.3H, Lymphocytes # (Auto) 3.0, Monocytes # (Auto) 1.0H, Eosinophils # (Auto) 0.1, Basophils # (Auto) 0.0, Nucleated Red Blood Cells % (auto) 0.0, Anion Gap 10, Glomerular Filtration Rate > 60.0, Calcium Level 9.5, Total Bilirubin 0.8, Direct Bilirubin 0.2, Aspartate Amino Transf (AST/SGOT) 16, Alanine Aminotransferase (ALT/SGPT) 32, Alkaline Phosphatase 86, Total Protein 7.5, Albumin 3.9, Albumin/Globulin Ratio 1.08, Human Chorionic Gonadotropin, Qual NEGATIVE CBC/BMP Laboratory Tests 06/14/19 13:46 Microbiology Microbiology 06/14/19 Blood Culture, Received Pending 06/14/19 Blood Culture, Received Pending Home Medications Scheduled Gabapentin (Gabapentin) 300 Mg Capsule, 300 MG PO TID Scheduled PRN Albuterol Sulf (Albuterol Sulfate) 2.5 Mg/3 Ml Vial.neb, 1 VIAL INH Q4H PRN for SOB/WHEEZING Albuterol Sulfate (Ventolin Hfa) 18 Gm Hfa.aer.ad, 2 PUFF INH Q4H PRN for wheezing Benzonatate (Benzonatate) 200 Mg Capsule, 200 MG PO TIDP PRN for cough Allergies Coded Allergies: Penicillins (Verified Allergy, Intermediate, HIVES, 12/02/18) codeine (Verified Allergy, Intermediate, HIVES, 12/02/18) bee venom protein (honey bee) (Verified Allergy, Unknown, 12/02/18) vancomycin (Verified Adverse Reaction, Intermediate, SEVERE ITCHING OF SCALP, 12/02/18) hydromorphone (Verified Adverse Reaction, Mild, VOMITTING, 5/14/19) A-FIB/CHADSVASC A-FIB History Current/History of A-Fib/PAF?: No EDGAR GERMAN MD Jun 14, 2019 18:08
[2019-06-14] MEDS ORDERED: MOM 30ML SUSPENSION UDC PO PRN (18:15)
[2019-06-14] MEDS ORDERED: ALBUTEROL SULFATE 2.5 MG/0.5 ML INH NEB SOLN NEB PRN (18:15)
[2019-06-14] MEDS ORDERED: MAALOX 30 ML SUSP *UDC PO PRN (18:15)
[2019-06-14] MEDS ORDERED: COLD30LI PO (18:23)
[2019-06-14] MEDS ORDERED: BENZ200C70 PO (18:23)
[2019-06-14] MEDS ORDERED: NICOTINE 14 MG/24 HR TRANSDERMAL TD ONE ×2 (18:30→23:45)
[2019-06-14] MEDS: IPRATROPIUM 0.5MG/ALBUTEROL 2.5MG INH SOL UD 3ML (DUONEB)(J7620) NEB SCH (20:16)
[2019-06-14] MEDS: DOCUSATE SODIUM 100 MG CAP PO SCH (21:00)
[2019-06-14] MEDS: ACETAMINOPHEN TAB 650MG DOSE (2X325MG) PO PRN (21:29)
[2019-06-14] MEDS: BENZONATATE 100 MG CAP PO PRN (21:30)
[2019-06-14 22:23] VITALS: BP 126/61
[2019-06-14] MEDS: methylPREDNISolone INJ 40 MG/1 ML VIAL (J2920) IV SCH (23:10)
[2019-06-15] MEDS: IPRATROPIUM 0.5MG/ALBUTEROL 2.5MG INH SOL UD 3ML (DUONEB)(J7620) NEB SCH ×3 (02:00→14:46)
[2019-06-15] MEDS: BENZONATATE 100 MG CAP PO PRN (05:50)
[2019-06-15] MEDS: ACETAMINOPHEN TAB 650MG DOSE (2X325MG) PO PRN (05:50)
[2019-06-15 06:00] VITALS: BP 129/71
[2019-06-15 07:59] LABS: BLOOD UREA NITROGEN 11 MG/DL (7-18); CALCIUM LEVEL 9.2 MG/DL (8.5-10.1); CARBON DIOXIDE LEVEL 23 MEQ/L (21-32); CHLORIDE LEVEL 109 MEQ/L (98-107); CREATININE FOR GFR 0.53 MG/DL (0.55-1.30); GLOMERULAR FILTRATION RATE > 60.0 (>60); GLUCOSE, FASTING 139 MG/DL (70-100); POTASSIUM SERUM 4.4 MEQ/L (3.5-5.1); SODIUM LEVEL 140 MEQ/L (136-145)
[2019-06-15 08:21] LABS: HEMOGLOBIN 14.2 g/dl (12.0-15.5); MEAN CORPUSCULAR HEMOGLOBIN 28.8 pg (27.0-33.0); MEAN CORPUSCULAR VOLUME 87.2 fl (80.0-96.0); PLATELET COUNT, AUTOMATED 252 10^3/uL (150-450); RED BLOOD COUNT 4.93 10^6/uL (4.00-5.40); WHITE BLOOD COUNT 13.2 10^3/uL (4.0-10.0)
--- NOTE | 2019-06-15 08:36 | REP ---
REASON: Right-sided chest pain. COMPARISON: Four days ago. CONTRAST: 100 mL [id number]. Once again, there is excellent visualization of the pulmonary arterial vasculature. No focal filling defects have developed since the last exam that would be considered consistent with pulmonary emboli. There are no pleural or pericardial effusions. Once again, note is made of mediastinal and subcarinal adenopathy. This is unchanged. The imaged upper abdomen and imaged osseous structures are unchanged and again seen to be within normal limits. Evaluation of the lung munroe shows no new abnormal nodules, masses, or opacities. The lung munroe are hypoexpanded, markedly limiting evaluation of them even with CT. Slight bibasilar subsegmental atelectatic changes are suspected. IMPRESSION: 1. No evidence of a pulmonary embolus. 2. Adenopathy, as described above, unchanged. Etiology uncertain. 3. Exam limitations, as described above. No new lung field abnormalities. 4. Other findings, as described above. Electronically Signed by Sacha Conti DO 06/15/2019 12:11 P
[2019-06-15] MEDS: DOCUSATE SODIUM 100 MG CAP PO SCH (08:58)
[2019-06-15] MEDS: methylPREDNISolone INJ 40 MG/1 ML VIAL (J2920) IV SCH (08:58)
[2019-06-15] MEDS ORDERED: ENOXAPARIN 40 MG/0.4 ML SYRINGE (J1650) SC SCH (09:00)
[2019-06-15] MEDS ORDERED: NICOTINE 21MG/24HR 1 EA TRANSDERMAL TD SCH (09:00)
[2019-06-15] MEDS ORDERED: IBUPROFEN 600 MG TAB PO PRN (11:15)
--- NOTE | 2019-06-15 11:17 | IPNPDOC ---
Date Seen The patient was seen on 06/15/19. Progress Note SUBJECTIVE: She was up coughing all night, report symptoms have improved. OBJECTIVE PHYSICAL EXAMINATION: GENERAL: tripoding, saturating well on room air HEENT: Normocephalic, atraumatic, moist mucous membranes NECK: Supple CARDIOVASCULAR EXAMINATION: S1, S2, no murmurs RESPIRATORY EXAMINATION: CTAB (had neb tx 30 min ago) ABDOMINAL EXAMINATION: Soft, nontender, nondistended, positive bowel sounds EXTREMITIES: no edema SKIN: No rash NEUROLOGICAL EXAMINATION: Alert and oriented 3, no focal deficits PSYCHIATRIC EXAMINATION: Calm and cooperative, appropriate affect, has capacity Imaging and labs: See above ASSESSMENT: Patient is a 28-year-old with past medical history of asthma controlled on inhalers, current smoker, presents worsening asthma exacerbation after discharge on 06/11/2019 with tobacco and marijuana insults after discharge. . PLAN: # Asthma Exacerbation: IV steroids and transition to by mouth, scheduled nebulized treatments, droplet precautions, and sx treatment #CP from cough d/t asthma exacerbation from rhino virus, ibuprofen and tylenol prn, consider tramadol #Tobacco dependence: Nicotine patch #. Fibromyalgia: Continue home meds #. Hepatitis C: Currently not on medications, follow-up as outpatient. #DVT prophylaxis: Enox Full code Dispo 06/16 VS, I&O, 24H, Fishbone Vital Signs/I&O Vital Signs Date Time Temp Pulse Resp B/P (MAP) Pulse Ox O2 Delivery O2 Flow Rate FiO2 06/15/19 06:00 97.5 63 20 129/71 (90) 97 Nasal Cannula 06/15/19 04:45 2.0 I&O- Last 24 Hours up to 6 AM 06/15/19 06:00 Intake Total 1150 ml Balance 1150 ml Laboratory Data 24H LABS Laboratory Tests 2 06/14/19 13:46: Immature Granulocyte % (Auto) 0.7, Neutrophils (%) (Auto) 77.5H, Lymphocytes (%) (Auto) 16.0L, Monocytes (%) (Auto) 5.3H, Eosinophils (%) (Auto) 0.3, Basophils (%) (Auto) 0.2, Neutrophils # (Auto) 14.3H, Lymphocytes # (Auto) 3.0, Monocytes # (Auto) 1.0H, Eosinophils # (Auto) 0.1, Basophils # (Auto) 0.0, Nucleated Red Blood Cells % (auto) 0.0, Anion Gap 10, Glomerular Filtration Rate > 60.0, Calcium Level 9.5, Total Bilirubin 0.8, Direct Bilirubin 0.2, Aspartate Amino Transf (AST/SGOT) 16, Alanine Aminotransferase (ALT/SGPT) 32, Alkaline Phosphatase 86, Total Protein 7.5, Albumin 3.9, Albumin/Globulin Ratio 1.08, Human Chorionic Gonadotropin, Qual NEGATIVE 06/15/19 05:43: Nucleated Red Blood Cells % (auto) 0.0, Anion Gap 8, Glomerular Filtration Rate > 60.0, Calcium Level 9.2 CBC/BMP Laboratory Tests 06/14/19 13:46 06/15/19 05:43 Microbiology Microbiology 06/14/19 Blood Culture, Received Pending 06/14/19 Blood Culture, Received Pending EDGAR GERMAN MD Jun 15, 2019 11:17
--- NOTE | 2019-06-15 14:28 | DS.PDOC ---
Discharge Summary General Date of Admission Jun 14, 2019 at 13:31 Date of Discharge 06/15/19 Specialist/Consultants Involve Patient is a 28-year-old with past medical history of asthma controlled on inhalers, current smoker, presents worsening asthma exacerbation after discharge on 06/11/2019 with tobacco and marijuana insults after discharge. This is her second admission (06/11 and 06/14), had a bad night and is still complaining of chest pain, but improved during the day. She lives at home with her boyfriend and father who also smoke. Currently not on oxygen, lungs are clear, patient agreed to avoid pulmonary toxins, we'll discharge on steroid taper, continue home nebs, and follow-up with primary care to 2 weeks. No other changes in home medications. All questions were answered. Imaging: see H&P PHYSICAL EXAMINATION: VITAL SIGNS: Please see below. GENERAL: No distress HEENT: Normocephalic, atraumatic, moist mucous membranes NECK: Supple CARDIOVASCULAR EXAMINATION: S1, S2, RESPIRATORY EXAMINATION: CTAB ABDOMINAL EXAMINATION: Soft, nontender, nondistended, positive bowel sounds EXTREMITIES: no edema SKIN: No rash NEUROLOGICAL EXAMINATION: Alert and oriented 3, no focal deficits PSYCHIATRIC EXAMINATION: Calm and cooperative, [appropriate] affect Disposition: Home, see above for details, 35 min Discharge Summary PROCEDURES PERFORMED DURING STAY: [None]. ADMITTING DIAGNOSES: 1. . DISCHARGE DIAGNOSES: 1. . COMPLICATIONS/CHIEF COMPLAINT: Asthma Exacerbation;Resp Distress;Wheezing. HISTORY OF PRESENT ILLNESS: . HOSPITAL COURSE: . DISCHARGE MEDICATIONS: Please see below. ALLERGIES: Please see below. PHYSICAL EXAMINATION ON DISCHARGE: VITAL SIGNS: Please see below. GENERAL: HEENT: NECK: CARDIOVASCULAR EXAMINATION: RESPIRATORY EXAMINATION: ABDOMINAL EXAMINATION: EXTREMITIES: SKIN: NEUROLOGICAL EXAMINATION: PSYCHIATRIC EXAMINATION: LABORATORY DATA: Please see below. IMAGING: PROGNOSIS: ACTIVITY: [As tolerated]. DIET: DISCHARGE PLAN: DISPOSITION: . DISCHARGE INSTRUCTIONS: 1. . ITEMS TO FOLLOWUP ON ON OUTPATIENT: 1. . DISCHARGE CONDITION: [Stable]. TIME SPENT ON DISCHARGE: Greater than minutes. Vital Signs/I&Os Vital Signs Date Time Temp Pulse Resp B/P (MAP) Pulse Ox O2 Delivery O2 Flow Rate FiO2 06/15/19 06:00 97.5 63 20 129/71 (90) 97 Nasal Cannula 06/15/19 04:45 2.0 I&O- Last 24 Hours up to 6 AM 06/15/19 05:59 Intake Total 1000 ml Balance 1000 ml Laboratory Data Labs 24H Laboratory Tests 2 06/15/19 05:43: Nucleated Red Blood Cells % (auto) 0.0, Anion Gap 8, Glomerular Filtration Rate > 60.0, Calcium Level 9.2 CBC/BMP Laboratory Tests 06/15/19 05:43 Microbiology Microbiology 06/14/19 Blood Culture, Received Pending 06/14/19 Blood Culture, Received Pending Discharge Medications Scheduled Gabapentin (Gabapentin) 300 Mg Capsule, 300 MG PO TID, (Reported) Scheduled PRN Albuterol Sulf (Albuterol Sulfate) 2.5 Mg/3 Ml Vial.neb, 2.5 MG INH Q4H PRN for SOB/WHEEZING, (Reported) Albuterol Sulfate (Ventolin Hfa) 18 Gm Hfa.aer.ad, 2 PUFF INH Q4H PRN for wheezing, (Reported) Benzonatate (Benzonatate) 200 Mg Capsule, 200 MG PO TID PRN for COUGH, (Reported) Diphenhydra/Phenyleph/Acetamin (Cold & Flu Relief Multi-Sym Lq) 180 Ml Liquid, 30 ML PO QHS PRN for COUGH, (Reported) Allergies Coded Allergies: Penicillins (Verified Allergy, Intermediate, HIVES, 12/02/18) codeine (Verified Allergy, Intermediate, HIVES, 12/02/18) bee venom protein (honey bee) (Verified Allergy, Unknown, 12/02/18) vancomycin (Verified Adverse Reaction, Intermediate, SEVERE ITCHING OF SCALP, 12/02/18) hydromorphone (Verified Adverse Reaction, Mild, VOMITTING, 12/02/18) EDGAR GERMAN MD Jun 15, 2019 14:28
[2019-06-15] MEDS ORDERED: PRED10TA2 PO (14:33)
[2019-06-15] MEDS ORDERED: NICO21PAT TD (14:33)
[2019-06-15] MEDS ORDERED: methylPREDNISolone INJ 40 MG/1 ML VIAL (J2920) IV SCH (21:00)
== END 2019-06-15 16:00 | disposition home or self-care (01) ==
LOC: M ED 13:30 → M ED INP 13:31 → M MS5PR 22:15
PROVIDERS: ADMIT Family Medicine; ATTEND Family Medicine
DX: J45.901 Unspecified asthma with (acute) exacerbation (principal); R06.03 Acute respiratory distress; F17.218 Nicotine dependence, cigarettes, with other nicotine-induced disorders; F12.10 Cannabis abuse, uncomplicated; Z79.51 Long term (current) use of inhaled steroids; Z79.899 Other long term (current) drug therapy; Z88.0 Allergy status to penicillin; Z88.1 Allergy status to other antibiotic agents; Z88.5 Allergy status to narcotic agent
CPT/HCPCS: 36415; 71045; 71275; 80048; 80076; 84703; 85025; 85027; 87040; 87205; 93041; 94640; 94760; 96361; 96372; 96374; 96376; 99285; J1650; J2920; J2930; Q9967

== ENCOUNTER 2020-02-17 11:00 | Emergency (ER) | payer OTHER ==
[~2020-02-17 11:00] MED LIST changes: +COLD30LI PO; +NICO21PAT TD; +PRED10TA2 PO; -VALA1TAB2; +VALA1TAB5
[2020-02-17] MEDS ORDERED: TETRACAINE 0.5% OPHTH SOLN 4ML As Ordered ONE (11:10)
[2020-02-17] MEDS ORDERED: FLUORESCEIN OPHTH 1 MG STRIP As Ordered ONE (11:10)
[2020-02-17] MEDS ORDERED: CIPROFLOXACIN 0.3% OPHTH SOLN 2.5ML As Ordered ONE (11:23)
== END 2020-02-17 11:30 | disposition home or self-care (01) ==
LOC: M ED 11:00
DX: S05.01XA Injury of conjunctiva and corneal abrasion without foreign body, right eye, initial encounter (principal); X58.XXXA Exposure to other specified factors, initial encounter; Y92.832 Beach as the place of occurrence of the external cause; Z88.0 Allergy status to penicillin; Z91.030 Bee allergy status

== ENCOUNTER → 2020-04-07 | Outpatient (CLI) | payer OTHER ==
--- NOTE | 2020-04-13 13:51 | REP ---
DIGITAL DIAGNOSTIC UNILATERAL LEFT BREAST MAMMOGRAPHY AND FOCUSED LEFT BREAST SONOGRAPHY HISTORY: Lump palpated on clinician breast exam in the superomedial quadrant of the left breast. The patient states that she cannot feel the lump herself. COMPARISON MAMMOGRAPHY: None. MAMMOGRAPHIC FINDINGS: Craniocaudal, mediolateral oblique, and true mediolateral views are obtained with 3D-tomography. These demonstrate heterogeneous dense breast parenchyma in a pattern which may inhibit the sensitivity of mammography. The [place] breast parenchymal density pattern is C. No dominant density, mass, architectural distortion, or worrisome skin thickening is seen. No microcalcification is observed mammographically. The mammogram is unremarkable. SONOGRAPHIC FINDINGS: Targeted sonography is performed in the superomedial quadrant. Heterogeneous fibroglandular background echotexture is seen. No cyst or mass is observed by ultrasound. IMPRESSION: BI-RADS Category 1 negative findings. Clinical follow-up is advised. BIRADS 1: BI-RADS/ACR category 1 mammogram. Negative mammogram. This mammogram was interpreted with the assistance of an FDA approved computer- aided detection system. The patients last clinical breast exam was done in 03/2020. Patient letter: M2 dense. [facility] lifetime breast cancer risk assessment is 17.5%. MTDD
== END ==
LOC: M WHC 13:21
PROVIDERS: ATTEND Nurse Practitioner Adult Health
DX: N63.22 Unspecified lump in the left breast, upper inner quadrant (principal)
CPT/HCPCS: 76642; 77065; G0279

== ENCOUNTER 2020-04-30 09:45 | Emergency (ER) | payer OTHER ==
[~2020-04-30] VITALS: Ht 172.7 cm; Wt 89.1 kg
[2020-04-30 10:49] VITALS: BP 122/61
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
== END 2020-04-30 10:54 | disposition home or self-care (01) ==
LOC: M ED 09:45
DX: M79.605 Pain in left leg (principal); B18.2 Chronic viral hepatitis C; M79.7 Fibromyalgia; F17.200 Nicotine dependence, unspecified, uncomplicated; Z88.0 Allergy status to penicillin; Z88.1 Allergy status to other antibiotic agents; Z88.6 Allergy status to analgesic agent; Z88.8 Allergy status to other drugs, medicaments and biological substances; Z91.030 Bee allergy status

== ENCOUNTER → 2021-04-03 | Outpatient (REF) | payer OTHER ==
[~2021-04-03] MED LIST changes: -DOXY100C PO; +DOXY100C3 PO; +GABA-282; +GABA-282 PO; -GABA-843; -GABA-843 PO
== END ==
LOC: M WUC 15:21
PROVIDERS: ATTEND Physician Assistant
DX: J06.9 Acute upper respiratory infection, unspecified (principal)

== ENCOUNTER 2021-04-16 13:38 | Inpatient (IN) | payer OTHER ==
[~2021-04-16] VITALS: Ht 172.7 cm; Wt 74.4 kg
[2021-04-16 14:57] LABS: BASO % 0.2 % (0.0-1.0); EOS # 0.2 10^3/uL (0.0-0.5); EOS % 1.3 % (0.0-3.0); HEMATOCRIT 41.8 % (36.0-47.0); HEMOGLOBIN 13.9 g/dl (12.0-15.5); LYMPH # 2.3 10^3/uL (1.5-5.0); LYMPH % 15.6 % (24.0-44.0); MEAN CORPUSCULAR HEMOGLOBIN 30.5 pg (27.0-33.0); MEAN CORPUSCULAR HGB CONC 33.3 g/dl (32.0-36.5); MEAN CORPUSCULAR VOLUME 91.9 fl (80.0-96.0); MONO # 0.8 10^3/uL (0.0-0.8); MONO % 5.5 % (2.0-8.0); NEUTROPHILS # 11.4 10^3/uL (1.5-8.5); NEUTROPHILS % 76.8 % (36.0-66.0); PLATELET COUNT, AUTOMATED 244 10^3/uL (150-450); RED BLOOD COUNT 4.55 10^6/uL (4.00-5.40); WHITE BLOOD COUNT 14.8 10^3/uL (4.0-10.0)
[2021-04-16 15:28] LABS: ALBUMIN 3.3 GM/DL (3.2-5.2); ALT/SGPT 29 U/L (12-78); BILIRUBIN,DIRECT 0.3 MG/DL (0.0-0.2); BILIRUBIN,TOTAL 0.9 MG/DL (0.2-1.0); LIPASE 74 U/L (73-393); TOTAL PROTEIN 6.4 GM/DL (6.4-8.2)
[2021-04-16] MEDS ORDERED: KETOROLAC 30 MG/ML 1ML VIAL IV ONE (15:35)
--- NOTE | 2021-04-16 15:42 | REP ---
INDICATION: concern for PID, severe R pelvic pain, tender on exam. COMPARISON: None. TECHNIQUE: Transvesical imaging only. The reason for the lack of transvaginal imaging is unknown to me. FINDINGS: The uterus measures 7.2 x 3.4 x 4.6 cm. The parenchymal echo pattern is within normal limits. The endometrial echo complex measures 4 mm in its greatest thickness and is within normal limits. The right ovary measures 2.2 x 2.9 x 1.8 cm and is within normal limits with an RI 0.67. Left ovary measures 3.2 x 3.6 x 2.1 cm and is within normal limits with an RI 0.58. Urinary bladder is empty. IMPRESSION: Transvesical pelvic ultrasound is within normal limits. <Electronically signed by Sacha Conti > 04/16/21 [id number]
[2021-04-16] MEDS ORDERED: ISOVUE-370 76% 100ML VIAL As Ordered ONE (15:43)
[2021-04-16] MEDS ORDERED: GENTAMICIN 240 MG in D5W 50 ML IM ONE (16:10)
--- NOTE | 2021-04-16 16:14 | REP ---
INDICATION: severe RLQ pain, r pelvic pain, pain with bimanual exam. COMPARISON: 08/22/2018 the latest prior TECHNIQUE: Standard helical technique after intravenous contrast administration. 100 cc Isovue 370 was administered. FINDINGS: The lung bases are clear and unchanged. The liver, gallbladder, spleen, pancreas, adrenal glands, and kidneys are unchanged and again seen to be within normal limits. The abdominal aorta is unchanged and again seen to be within normal limits. There is a borderline left para-aortic lymph node measuring 8 mm in its greatest short axis dimension. There is no evidence of free air. There is a small amount of free pelvic fluid. Limited evaluation of the bowel loops and the mesenteries show no gross abnormalities. In the right posterior adnexa there is a 4 cm sized wall enhancing low-density structure surrounded by free fluid. This represents change from the prior exam. The osseous structures are within normal limits. IMPRESSION: Findings involving the pelvis as described above suspicious for a decompressing ovarian cyst or even a tubo-ovarian abscess or salpingitis. Ultrasound obtained earlier today was a transvesical ultrasound only. The reason for the lack of transvaginal imaging for that examination was unknown to me. That ultrasound examination showed no evidence of an abnormality. Clinical correlation and follow-up is recommended. <Electronically signed by Sacha Conti > 04/16/21 [id number]
[2021-04-16] MEDS ORDERED: DOXY1CAP62 PO (16:15)
[2021-04-16] MEDS ORDERED: FLAG500T PO (16:19)
[2021-04-16 16:37] LABS: GC DNA AMPLIFICATION NEGATIVE (NEGATIVE)
[2021-04-16] MEDS ORDERED: MORPHINE 2 MG/ML 1ML VIAL (J2270) IV ONE (16:50)
[2021-04-16] MEDS ORDERED: ONDANSETRON 4MG/2ML VIAL IV ONE (16:50)
[2021-04-16] MEDS ORDERED: CLINDAMYCIN 900 MG in IV 1 EA IV ONE (17:00)
[2021-04-16] MEDS ORDERED: metroNIDAZOLE (FLAGYL) 500MG TABLET PO ONE (17:00)
[2021-04-16] MEDS ORDERED: IBUPROFEN 600MG TAB PO PRN (17:35)
[2021-04-16] MEDS ORDERED: ACETAMINOPHEN TAB 650MG DOSE (2X325MG) PO PRN (17:35)
[2021-04-16] MEDS ORDERED: HOME MED LIST COMPLETE! XX SCH (18:00)
[2021-04-16] MEDS ORDERED: GENTAMICIN 240 MG in D5W 50 ML IV ONE (18:00)
[2021-04-16 18:05] LABS: RSV AMPLIFICATION NEGATIVE (NEGATIVE)
--- NOTE | 2021-04-16 18:08 | HPEPDOC ---
[facility] Medical History & Physical Date of Admission Apr 16, 2021 Date of Service: Apr 16, 2021 History and Physical CHIEF COMPLAINT: Patient is a 30yo who presents to the ER with vaginal bleeding and severe RLQ pain. HISTORY OF PRESENT ILLNESS: PAST MEDICAL HISTORY: 1. Fibromyalgia PAST SURGICAL HISTORY: Denies SOCIAL HISTORY: Tobacco use: 1ppd since age 16 ETOH: weekly MJ: daily Illicit drug use: intranasal cocaine once weekly IV drug use: denies Other relevant social factors: unprotected sex with new male partner, nonmonogamous ALLERGIES: Please see below. REVIEW OF SYSTEMS: CONSTITUTIONAL: subject fevers and chills at home. CARDIOVASCULAR: Denies palpitations RESPIRATORY: Denies CP or shortness of breath GASTROINTESTINAL: denies constipation or diarrhea GENITOURINARY: vaginal bleeding with thick vaginal discharge MUSCULOSKELETAL: denies muscle pain or weakness HOME MEDICATIONS: Please see below. PHYSICAL EXAMINATION: Vitals: See below GEN: No acute distress, resting comfortably CV: regular rate and rhythm PULM: CTAP ABD: diffusely tender especially in the RLQ PELVIC (per ETC provider): acute cervicitis with thick vaginal discharge, severe CMT, mass palpated in the right adnexal LABORATORY DATA: See below. IMAGING: CT AP - 4cm ring enhancing fluid collection in the right pelvis MICROBIOLOGY: Please see below. ASSESSMENT: 30yo who presents to ER with vaginal bleeding and severe abdominal pain, diagnosed with trichomonal infection and tuboovarian abscess. Admit for IV antibiotics given PID complicated by TOA . PLAN: NEURO 1. Pain control - mot/tyl PRN - oxycodone PRN 2. Fibromyalgia - con't home gabapentin IVF/Diet 1. Regular diet as tolerated 2. Zofran reglan PRN 3. IVF w/ IV abx to equal 125cc/hr ID 1. Start IV antibiotics, regiment confirmed with pharmacy - gentamycin 5mg/kg q24hrs - clindamycin 900mg q8hrs - metronidazole 500mg BID 2. trend WBC w/ fever curve 3. Consider IR guided intraabdominal drain if no clinical improvement with 48hrs of abx 4. Consented patient for STI testing including HIV, RPR, and Hep B & C Vital Signs Vital Signs Date Time Temp Pulse Resp B/P (MAP) Pulse Ox O2 Delivery O2 Flow Rate FiO2 04/16/21 17:02 97.6 60 16 115/57 (76) 97 Room Air Laboratory Data Labs 24H Laboratory Tests 2 04/16/21 14:40: POC Beta HCG, Quantitative < 5.0 04/16/21 14:43: Immature Granulocyte % (Auto) 0.6, Neutrophils (%) (Auto) 76.8H, Lymphocytes (%) (Auto) 15.6L, Monocytes (%) (Auto) 5.5, Eosinophils (%) (Auto) 1.3, Basophils (%) (Auto) 0.2, Neutrophils # (Auto) 11.4H, Lymphocytes # (Auto) 2.3, Monocytes # (Auto) 0.8, Eosinophils # (Auto) 0.2, Basophils # (Auto) 0.0, Nucleated Red Blood Cells % (auto) 0.0, Total Bilirubin 0.9, Direct Bilirubin 0.3H, Aspartate Amino Transf (AST/SGOT) 20, Alanine Aminotransferase (ALT/SGPT) 29, Alkaline Phosphatase 71, Total Protein 6.4, Albumin 3.3, Albumin/Globulin Ratio 1.1L, Lipase 74 04/16/21 14:59: Urine Color JALEEL, Urine Appearance HAZY, Urine pH 5.0, Urine Specific [place] 1.025, Urine Protein 1+H, Urine Glucose (UA) NEGATIVE, Urine Ketones NEGATIVE, Urine Blood 2+H, Urine Nitrite NEGATIVE, Urine Bilirubin NEGATIVE, Urine Urobilinogen 2.0H, Urine Leukocyte Esterase 3+H, Urine WBC (Auto) 31H, Urine RBC (Auto) 8H, Urine Hyaline Casts (Auto) 0, Urine Bacteria (Auto) 1+H, Urine Squamous Epithelial Cells 7, Urine Mucus (Auto) MODERATE, Urine Sperm (Auto) , Chlamydia trachomatis DNA (KIMBERLEY) NEGATIVE, Neisseria gonorrhoeae DNA (KIMBERLEY) N EGATIVE, Trichomonas vaginalis (PCR) POSITIVEH 04/16/21 15:04: POC Glucose (Misc Panel) 90, POC Sodium (Misc Panel) 140, POC Potassium (Misc Panel) 4.0, POC Chloride (Misc Panel) 103, POC Total CO2 (Misc Panel) 25.0, POC Blood Urea Nitrogen (Misc Panel 8, POC Ionized Calcium (Misc Panel) 5.3, POC Creatinine (Misc Panel) 0.7, POC Hematocrit (Misc Panel) 41.0 04/16/21 16:52: Lactic Acid Level 0.6 CBC/BMP Laboratory Tests 04/16/21 14:43 Microbiology Microbiology 04/16/21 Blood Culture, Received Pending 04/16/21 Blood Culture, Received Pending 04/16/21 Urine Culture, Received Pending 04/16/21 Wet Prep - Final, Complete Home Medications Scheduled Gabapentin (Gabapentin) 300 Mg Capsule, 300 MG PO TID Allergies Coded Allergies: Penicillins (Verified Allergy, Intermediate, HIVES, 12/02/18) bee venom protein (honey bee) (Verified Allergy, Unknown, 12/02/18) vancomycin (Verified Adverse Reaction, Intermediate, SEVERE ITCHING OF SCALP, 12/02/18) hydromorphone (Verified Adverse Reaction, Mild, VOMITTING, 12/02/18) A-FIB/CHADSVASC A-FIB History Current/History of A-Fib/PAF?: No YOLY PITTS MD Apr 16, 2021 18:08
[2021-04-16 20:11] LABS: BASO % 0.2 % (0.0-1.0); EOS # 0.1 10^3/uL (0.0-0.5); EOS % 1.1 % (0.0-3.0); HEMOGLOBIN 12.7 g/dl (12.0-15.5); LYMPH # 2.1 10^3/uL (1.5-5.0); LYMPH % 17.8 % (24.0-44.0); MEAN CORPUSCULAR HEMOGLOBIN 30.8 pg (27.0-33.0); MEAN CORPUSCULAR HGB CONC 33.4 g/dl (32.0-36.5); MONO # 0.6 10^3/uL (0.0-0.8); MONO % 4.9 % (2.0-8.0); NEUTROPHILS # 8.8 10^3/uL (1.5-8.5); NEUTROPHILS % 75.6 % (36.0-66.0); PLATELET COUNT, AUTOMATED 205 10^3/uL (150-450); RED BLOOD COUNT 4.13 10^6/uL (4.00-5.40); WHITE BLOOD COUNT 11.7 10^3/uL (4.0-10.0)
[2021-04-16] MEDS: oxyCODONE 5MG TAB PO PRN (21:38)
[2021-04-16 22:30] VITALS: BP 111/59
[2021-04-16] MEDS: NICOTINE 21MG/24HR 1 EA TRANSDERMAL TD PRN (22:48)
[2021-04-17] VITALS (7 sets, daily range): BP systolic 102–123; BP diastolic 52–67
[2021-04-17] MEDS: CLINDAMYCIN 900 MG in IV 1 EA IV SCH ×3 (00:57→17:08)
[2021-04-17] MEDS: ACETAMINOPHEN 500 MG TAB PO PRN ×2 (02:40→14:12)
[2021-04-17] MEDS: metroNIDAZOLE (FLAGYL) 500MG TABLET PO SCH ×2 (08:10→20:45)
[2021-04-17] MEDS: oxyCODONE 5MG TAB PO PRN ×3 (08:10→20:45)
[2021-04-17 10:55] LABS: HEPATITIS B SURFACE ANTIGEN NEGATIVE (NEGATIVE)
[2021-04-17 11:21] LABS: HEPATITIS B CORE ANTIBODY IGM NEGATIVE (NEGATIVE)
[2021-04-17 11:23] LABS: HIV 1&2 SCREEN CENTAUR NEGATIVE (NEGATIVE)
[2021-04-17 11:24] LABS: HEPATITIS A ANTIBODY IGM NEGATIVE (NEGATIVE)
[2021-04-17 11:58] LABS: ALBUMIN 2.9 GM/DL (3.2-5.2); ALT/SGPT 28 U/L (12-78); BILIRUBIN,TOTAL 0.8 MG/DL (0.2-1.0); BLOOD UREA NITROGEN 10 MG/DL (7-18); CALCIUM LEVEL 8.5 MG/DL (8.5-10.1); CARBON DIOXIDE LEVEL 30 MEQ/L (21-32); CHLORIDE LEVEL 106 MEQ/L (98-107); CREATININE FOR GFR 0.65 MG/DL (0.55-1.30); GLOMERULAR FILTRATION RATE > 60.0 (>60); GLUCOSE, FASTING 102 MG/DL (70-100); POTASSIUM SERUM 3.5 MEQ/L (3.5-5.1); SODIUM LEVEL 141 MEQ/L (136-145); TOTAL PROTEIN 5.9 GM/DL (6.4-8.2)
[2021-04-17 12:53] LABS: HEPATITIS C VIRUS ABY INDEX > 11.0 INDEX (<0.8)
--- NOTE | 2021-04-17 15:05 | IPNPDOC ---
Text Note Date of Service The patient was seen on 04/17/21. NOTE S: Rasheeda is a 30 year old female who was admitted on 04/16/21 with RLQ pain and suspected PID with TOA seen on CT scan. She is tolerating IV antibiotics. She notes pain is relieved with use of oxycodone which was last administered at 14:15. Pt complains of early satiety, only tolerates a few bites of food. She notes vaginal discharge and lower abdominal pain that is worse with coughing. She remains afebrile and is resting comfortably in bed. O: VS-afebrile Labs: see below General: alert and oriented x 3. Sitting up in bed talking on phone. Resp: breathing comfortably on room air, regular rate, no use accessory muscles Abdomen: nondistended A: 1. Pelvic pain with TOA 2. Trichomoniasis P: Continue with IV antibiotics as ordered Continue with pain relief as needed Education regarding need for partner treatment for Trichomoniasis Diet and activity as tolerated. VS,Fishbone, I+O VS, Fishbone, I+O Laboratory Tests 04/16/21 20:04 04/17/21 10:09 Vital Signs Date Time Temp Pulse Resp B/P (MAP) Pulse Ox O2 Delivery O2 Flow Rate FiO2 04/17/21 14:13 16 04/17/21 14:00 97.4 65 107/57 (74) 100 Room Air I&O- Last 24 Hours up to 6 AM 04/17/21 05:59 Intake Total 106 ml Balance 106 ml LINDA LANCASTER CNM Apr 17, 2021 15:05
[2021-04-17] MEDS: GENTAMICIN 380 MG in D5W 50 ML IV SCH (18:18)
[2021-04-17] MEDS: NICOTINE 21MG/24HR 1 EA TRANSDERMAL TD PRN (20:46)
[2021-04-18] MEDS: CLINDAMYCIN 900 MG in IV 1 EA IV SCH ×3 (00:22→17:17)
[2021-04-18] MEDS: oxyCODONE 5MG TAB PO PRN ×4 (02:50→22:21)
[2021-04-18] MEDS: ACETAMINOPHEN 500 MG TAB PO PRN ×4 (02:51→22:22)
[2021-04-18 02:56] VITALS: BP 111/59
[2021-04-18 06:00] VITALS: BP 121/67
[2021-04-18] MEDS: metroNIDAZOLE (FLAGYL) 500MG TABLET PO SCH ×2 (09:06→20:17)
[2021-04-18 14:00] VITALS: BP 109/61
--- NOTE | 2021-04-18 14:45 | IPNPDOC ---
Text Note Date of Service The patient was seen on 04/18/21. NOTE HD#3 S: Patient still with pelvic pain but has noticed improvement. She describes it between a 6 and a 7 out of 10 previously a constant 8-9. She is continue to have greenish vaginal discharge and some vaginal bleeding. She has been able to tolerate p.o. O: vss, AF General: alert and oriented x 3. Sitting up in bed talking on phone. Resp: breathing comfortably on room air, regular rate, no use accessory muscles Abdomen: nondistended A: 1. Pelvic pain with TOA 2. Trichomoniasis P: Continue with IV antibiotics as ordered CBC Continue with pain relief as needed Diet and activity as tolerated. Disposition likely tomorrow is she continues to improve Shannan Velazquez MD VS,Cliff, I+O VSCliff I+O Vital Signs Date Time Temp Pulse Resp B/P (MAP) Pulse Ox O2 Delivery O2 Flow Rate FiO2 04/18/21 09:36 16 04/18/21 06:00 97.7 61 121/67 (85) 100 Room Air I&O- Last 24 Hours up to 6 AM 04/18/21 06:00 Intake Total 1130 ml Balance 1130 ml SHANNAN VELAZQUEZ MD. Apr 18, 2021 14:45
[2021-04-18] MEDS: ONDANSETRON 4MG/2ML VIAL IV PRN (15:13)
[2021-04-18 15:45] LABS: HEMATOCRIT 39.3 % (36.0-47.0); HEMOGLOBIN 12.8 g/dl (12.0-15.5); MEAN CORPUSCULAR HEMOGLOBIN 30.1 pg (27.0-33.0); MEAN CORPUSCULAR HGB CONC 32.6 g/dl (32.0-36.5); MEAN CORPUSCULAR VOLUME 92.5 fl (80.0-96.0); PLATELET COUNT, AUTOMATED 178 10^3/uL (150-450); RED BLOOD COUNT 4.25 10^6/uL (4.00-5.40); WHITE BLOOD COUNT 6.2 10^3/uL (4.0-10.0)
[2021-04-18] MEDS: GENTAMICIN 380 MG in D5W 50 ML IV SCH (17:17)
[2021-04-18 22:05] VITALS: BP 118/68
[2021-04-18 22:16] VITALS: BP 109/62
[2021-04-18] MEDS: NICOTINE 21MG/24HR 1 EA TRANSDERMAL TD PRN (22:22)
[2021-04-19 00:30] VITALS: BP 110/62
[2021-04-19] MEDS: CLINDAMYCIN 900 MG in IV 1 EA IV SCH ×2 (01:12→09:18)
[2021-04-19 04:30] VITALS: BP 125/74
[2021-04-19 06:41] VITALS: BP 125/74
[2021-04-19] MEDS: oxyCODONE 5MG TAB PO PRN (08:25)
[2021-04-19] MEDS: metroNIDAZOLE (FLAGYL) 500MG TABLET PO SCH (08:25)
[2021-04-19] MEDS: ACETAMINOPHEN 500 MG TAB PO PRN (08:25)
[2021-04-19] MEDS: ONDANSETRON 4MG/2ML VIAL IV PRN (09:18)
[2021-04-19 10:00] VITALS: BP 112/71
[2021-04-19 12:00] VITALS: BP 112/71
[2021-04-19 14:00] VITALS: BP 113/60
--- NOTE | 2021-04-19 15:48 | DSES ---
DISCHARGE SUMMARY DATE OF ADMISSION: 04/16/2021 DATE OF DISCHARGE: 04/19/2021 DISCHARGE DIAGNOSIS: 1. Tuboovarian abscess with trichomonal infection. HISTORY: Sherita is a 30-year-old 4 para 0-0-4-0 who presented to the ER with vaginal bleeding and severe right lower quadrant pain. She was admitted by Dr. Melani Rust with a diagnosis of trichomonal infection and tuboovarian abscess. She received IV antibiotics to treat the abscess as well as pelvic inflammatory disease. Her initial white count was 14.8, hemoglobin was 13.9, hematocrit 41.8. Most recent CBC on 04/18/2021 showed a white count of 6.2, hemoglobin 12.8, hematocrit 39.3 and platelets 178,000. She has been afebrile throughout her entire stay. Her pain has been well-managed with p.o. pain medications. She is tolerating p.o. fluids and a regular diet. Most recent vital signs at 1400 today: Temperature is 97, pulse is 71, respirations are 19, BP is 113/60. The imaging that she underwent on 04/16 demonstrated suspicious for an ovarian cyst or tuboovarian abscess or salpingitis per CT. PLAN: Per consult with Dr. Nomi Kim, discharge the patient home today, [id number] medications Tylenol and Ibuprofen for her pain. She is to follow-up at [facility] in two weeks for a follow-up visit with an Scotty, Dr. Rust, Dr. Kim, Dr. Velazquez. E-prescriptions through [facility] for Zofran 4 mg ODT q. 6 hours p.r.n. for nausea, Cipro 500 mg p.o. b.i.d. x6 days, Metronidazole 500 mg p.o. b.i.d. x6 days. I did review discharge instructions with the patient. I reviewed danger signs and access to her care provider. The patient has had her questions answered and does desire discharge home. [facility]
== END 2021-04-19 15:25 | disposition home or self-care (01) | DRG 531 ==
LOC: M ED 13:38 → M ED INP 17:32 → ENRESERV 20:50 → M MS5PR 22:30
PROVIDERS: ADMIT Obstetrics & Gynecology; ATTEND Advanced Practice Midwife
DX: N70.93 Salpingitis and oophoritis, unspecified (principal); A59.01 Trichomonal vulvovaginitis

== ENCOUNTER 2022-02-15 11:34 | Emergency (ER) | payer OTHER, SELFPAY ==
[~2022-02-15] VITALS: Ht 172.7 cm; Wt 84.9 kg
[2022-02-15 11:34] VITALS: BP 139/99
[~2022-02-15 11:34] MED LIST changes: +ALBU2.5V10 INH; -ALBU83IN INH; -CEFD1CAP8; +CEFD300C41; +DOXY-443 PO; +FLAG500T PO
== END 2022-02-15 11:56 | disposition left against medical advice (07) ==
LOC: M ED 11:34
DX: Z53.29 Procedure and treatment not carried out because of patient's decision for other reasons (principal)

== ENCOUNTER → 2022-05-22 | Outpatient (REF) | payer OTHER ==
[2022-05-22 12:25] LABS: BASO % 0.3 % (0.0-1.0); EOS # 0.2 10^3/uL (0.0-0.5); HEMATOCRIT 44.2 % (36.0-47.0); HEMOGLOBIN 14.3 g/dl (12.0-15.5); LYMPH # 2.5 10^3/uL (1.5-5.0); MEAN CORPUSCULAR HEMOGLOBIN 29.9 pg (27.0-33.0); MEAN CORPUSCULAR HGB CONC 32.4 g/dl (32.0-36.5); MEAN CORPUSCULAR VOLUME 92.5 fl (80.0-96.0); MONO # 0.5 10^3/uL (0.0-0.8); NEUTROPHILS # 4.4 10^3/uL (1.5-8.5); NEUTROPHILS % 58.3 % (36.0-66.0); PLATELET COUNT, AUTOMATED 191 10^3/uL (150-450); RED BLOOD COUNT 4.78 10^6/uL (4.00-5.40); WHITE BLOOD COUNT 7.5 10^3/uL (4.0-10.0)
[2022-05-22 13:01] LABS: ALBUMIN 3.5 GM/DL (3.2-5.2); ALT/SGPT 28 U/L (12-78); BILIRUBIN,TOTAL 0.4 MG/DL (0.2-1.0); BLOOD UREA NITROGEN 9 MG/DL (7-18); CARBON DIOXIDE LEVEL 26 MEQ/L (21-32); CHLORIDE LEVEL 104 MEQ/L (98-107); CHOLESTEROL LEVEL 148 MG/DL (<200); CREATININE FOR GFR 0.59 MG/DL (0.55-1.30); GLOMERULAR FILTRATION RATE > 60.0 (>60); GLUCOSE, FASTING 93 MG/DL (70-100); HDL CHOLESTEROL 49 MG/DL (>40); LDL CHOLESTEROL 71 MG/DL (<100); NON-HDL-C 99 MG/DL; POTASSIUM SERUM 4.1 MEQ/L (3.5-5.1); SODIUM LEVEL 136 MEQ/L (136-145); TOTAL PROTEIN 6.9 GM/DL (6.4-8.2); TRIGLYCERIDES LEVEL 138 MG/DL (<150)
[2022-05-22 13:24] LABS: TOTAL 25(OH) VITAMIN D 17.7 NG/ML (30.0-100.0)
[2022-05-22 14:15] LABS: HEMOGLOBIN A1c 5.3 %
== END ==
LOC: M LAB REF 11:19
PROVIDERS: ATTEND Nurse Practitioner Family
DX: E66.3 Overweight (principal)

== ENCOUNTER 2022-07-21 22:20 | Emergency (ER) | payer OTHER ==
[~2022-07-21] VITALS: Ht 172.7 cm; Wt 84.4 kg
[2022-07-21 22:21] VITALS: BP 133/63
== END 2022-07-22 02:23 | disposition left against medical advice (07) ==
LOC: M ED 22:20
DX: Z53.21 Procedure and treatment not carried out due to patient leaving prior to being seen by health care provider (principal)

== ENCOUNTER 2022-10-13 13:16 | Emergency (ER) | payer OTHER ==
[~2022-10-13] VITALS: Ht 172.7 cm; Wt 78.3 kg
[2022-10-13 13:17] VITALS: BP 120/68
[2022-10-13 14:37] LABS: BASO % 0.2 % (0.0-1.0); EOS # 0.1 10^3/uL (0.0-0.5); EOS % 0.6 % (0.0-3.0); HEMATOCRIT 44.2 % (36.0-47.0); HEMOGLOBIN 14.8 g/dl (12.0-15.5); LYMPH % 12.3 % (24.0-44.0); MEAN CORPUSCULAR HEMOGLOBIN 29.7 pg (27.0-33.0); MEAN CORPUSCULAR HGB CONC 33.5 g/dl (32.0-36.5); MEAN CORPUSCULAR VOLUME 88.6 fl (80.0-96.0); MONO # 0.9 10^3/uL (0.0-0.8); MONO % 5.5 % (2.0-8.0); NEUTROPHILS % 80.8 % (36.0-66.0); PLATELET COUNT, AUTOMATED 218 10^3/uL (150-450); RED BLOOD COUNT 4.99 10^6/uL (4.00-5.40); WHITE BLOOD COUNT 16.1 10^3/uL (4.0-10.0)
[2022-10-13] MEDS ORDERED: MORPHINE 2 MG/ML 1ML VIAL IV ONE ×3 (14:45→18:00)
[2022-10-13] MEDS ORDERED: ONDANSETRON 4MG 2ML VIAL IV ONE (14:45)
[2022-10-13 15:01] LABS: ALBUMIN 3.8 G/DL (3.2-5.2); BILIRUBIN,DIRECT 0.3 MG/DL (<0.4); TOTAL PROTEIN 7.3 G/DL (5.7-8.2)
[2022-10-13 15:23] LABS: GC DNA AMPLIFICATION NEGATIVE (NEGATIVE)
[2022-10-13] MEDS ORDERED: NS 1,000 ML IV ONE (15:45)
[2022-10-13 17:27] LABS: RSV AMPLIFICATION NEGATIVE (NEGATIVE)
[2022-10-13] MEDS ORDERED: cefTRIAXone SOD 500 MG in D5W MINI-BAG PLUS 50 ML IV ONE (17:40)
[2022-10-13] MEDS ORDERED: KETOROLAC 30 MG/ML 1ML VIAL IV ONE (17:50)
[2022-10-13] MEDS ORDERED: MORPHINE 4 MG/ML 1ML VIAL IV ONE (17:50)
[2022-10-13] MEDS ORDERED: OXYC1TAB23 PO (18:05)
[2022-10-13] MEDS ORDERED: METR-265 PO ×2 (18:05→18:07)
[2022-10-13] MEDS ORDERED: ONDA4TAB6 PO ×2 (18:05→18:07)
[2022-10-13] MEDS ORDERED: DOXY-443 PO ×2 (18:05→18:07)
[2022-10-13] MEDS ORDERED: KETO10TAB PO (18:07)
== END 2022-10-13 18:30 | disposition home or self-care (01) ==
LOC: M ED 13:16
DX: N73.9 Female pelvic inflammatory disease, unspecified (principal); B19.20 Unspecified viral hepatitis C without hepatic coma; R56.9 Unspecified convulsions; F60.3 Borderline personality disorder; Z88.0 Allergy status to penicillin; Z88.8 Allergy status to other drugs, medicaments and biological substances; Z91.030 Bee allergy status; Z79.899 Other long term (current) drug therapy
CPT/HCPCS: 76830; 76856; 80047; 80076; 81001; 83605; 83690; 84702; 85025; 87086; 87210; 87631; 87661; 87810; 87850; 93976; 96365; 96366; 96375; 99283; J0696; J1885; J2270; J2405

== ENCOUNTER → 2024-01-15 | Outpatient (REF) | payer OTHER, MEDICAID ==
[~2024-01-15] MED LIST changes: +CEFD1CAP9; -CEFD300C41; +DOXY-323 PO; -DOXY-443 PO; +DOXY100T PO; +KETO10TAB PO; +METR-265 PO; +ONDA-282 PO; +OXYC1TAB23 PO; +PERCOCET PO
[2024-01-15 16:55] LABS: ALBUMIN 3.9 G/DL (3.2-5.2); ALKALINE PHOSPHATASE 71 U/L (46-116); ALT/SGPT 56 U/L (7.0-40); AST/SGOT 26 U/L (<34); BLOOD UREA NITROGEN 13 MG/DL (9-23); CALCIUM LEVEL 9.2 MG/DL (8.5-10.1); CARBON DIOXIDE LEVEL 25 MMOL/L (20-31); CHLORIDE LEVEL 104 MMOL/L (98-107); CHOLESTEROL LEVEL 169 MG/DL (<200); CHOLESTEROL RISK RATIO 3.15 (<5); CREATININE FOR GFR 0.61 MG/DL (0.55-1.30); GLOMERULAR FILTRATION RATE > 60.0 (>60); GLUCOSE, FASTING 85 MG/DL (60-100); HDL CHOLESTEROL 53.6 MG/DL (>40); LDL CHOLESTEROL 104.6 MG/DL (<100); MAGNESIUM LEVEL 1.9 MG/DL (1.8-2.4); NON-HDL-C 115.4 MG/DL; POTASSIUM SERUM 4.5 MMOL/L (3.5-5.1); SODIUM LEVEL 136 MMOL/L (136-145); TRIGLYCERIDES LEVEL 54 MG/DL (<150)
[2024-01-15 16:56] LABS: THYROID STIMULATING HORMONE 2.711 uIU/ML (0.55-4.78)
[2024-01-15 16:57] LABS: TOTAL 25(OH) VITAMIN D 24.9 NG/ML (20.0-100.0)
[2024-01-15 17:08] LABS: BASO % 0.3 % (0.0-1.0); EOS # 0.1 10^3/uL (0.0-0.5); EOS % 0.9 % (0.0-3.0); HEMATOCRIT 40.7 % (36.0-47.0); HEMOGLOBIN 13.6 g/dl (12.0-15.5); LYMPH % 26.7 % (24.0-44.0); MEAN CORPUSCULAR HEMOGLOBIN 29.9 pg (27.0-33.0); MEAN CORPUSCULAR HGB CONC 33.4 g/dl (32.0-36.5); MEAN CORPUSCULAR VOLUME 89.5 fl (80.0-96.0); MONO # 0.7 10^3/uL (0.0-0.8); MONO % 9.1 % (2.0-8.0); NEUTROPHILS # 4.7 10^3/uL (1.5-8.5); NEUTROPHILS % 62.7 % (36.0-66.0); PLATELET COUNT, AUTOMATED 245 10^3/uL (150-450); RED BLOOD COUNT 4.55 10^6/uL (4.00-5.40); WHITE BLOOD COUNT 7.5 10^3/uL (4.0-10.0)
[2024-01-15 17:59] LABS: HEPATITIS C VIRUS ABY INDEX > 11.00 INDEX (<0.8)
== END ==
LOC: M LAB REF 16:28
PROVIDERS: ATTEND Nurse Practitioner Family
DX: Z11.59 Encounter for screening for other viral diseases (principal); E66.3 Overweight

== ENCOUNTER → 2024-01-20 | Outpatient (REF) | payer OTHER ==
[2024-01-20 19:28] LABS: ALBUMIN 3.4 G/DL (3.2-5.2); ALKALINE PHOSPHATASE 77 U/L (46-116); ALT/SGPT 35 U/L (7.0-40); AST/SGOT 13 U/L (<34); BILIRUBIN,DIRECT 0.1 MG/DL (<0.4); BILIRUBIN,TOTAL 0.3 MG/DL (0.3-1.2); HEPATITIS B SURFACE ANTIBODY POSITIVE (POSITIVE); TOTAL PROTEIN 6.4 G/DL (5.7-8.2)
[2024-01-20 19:41] LABS: HEPATITIS B SURFACE ANTIGEN NEGATIVE (NEGATIVE)
[2024-01-20 20:05] LABS: HEPATITIS C VIRUS ABY INDEX > 11.00 INDEX (<0.8)
== END ==
LOC: M LAB REF 16:41
PROVIDERS: ATTEND Pediatrics
DX: B19.20 Unspecified viral hepatitis C without hepatic coma (principal)

== ENCOUNTER 2024-03-02 21:26 | Emergency (ER) | payer OTHER ==
[~2024-03-02] VITALS: Ht 172.7 cm; Wt 88.8 kg
[2024-03-02 21:26] VITALS: BP 146/85; TEMP 99; O2SAT 98
== END 2024-03-03 | disposition left against medical advice (07) ==
LOC: M ED 21:26
DX: Z53.21 Procedure and treatment not carried out due to patient leaving prior to being seen by health care provider (principal)

== ENCOUNTER → 2024-08-17 | Outpatient (CLI) | payer OTHER ==
[~2024-08-17] MED LIST changes: -DOXY-323 PO; +DOXY-441 PO; +GABA-1172; +GABA-1172 PO; -GABA-282; -GABA-282 PO
[2024-08-18 16:53] LABS: HEPATITIS A IgG TOTAL REACTIVE (NON-REACTIVE); HEPATITIS B CORE ANTIBODY IGG NON-REACTIVE (NON-REACTIVE)
[2024-08-18 17:21] LABS: HCV RNA QUANTITATION 496000 IU/mL (NOT DETECTED)
== END ==
LOC: M PLALAB 09:42
PROVIDERS: ATTEND Internal Medicine Infectious Disease
DX: B18.2 Chronic viral hepatitis C (principal)